=== PATIENT | male | born 1960 | race Caucasian/White ===

== ENCOUNTER 2019-02-18 04:57 | Inpatient (IN) ==
--- NOTE | 2019-02-18 06:40 | PROVIDER DOCUMENTATION ---
HPI-Respiratory General - General Chief Complaint: Shortness of Breath Stated Complaint: SOB Time Seen by Provider: 02/18/19 05:30 Source: patient Allergies/Adverse Reactions: Patient Allergies Allergy/AdvReac Type Severity Reaction Status Date / Time No Known Allergies Allergy Verified 09/27/12 09:49 Home Medications: Home Medication List Medication Instructions Recorded Confirmed Last Taken Type Albuterol Sulfate [Albuterol 8.5 gm INHALATION Q4-6H PRN PRN #1 02/18/19 Unknown Rx Sulfate Hfa] [email or web address] Albuterol Sulfate [Proair Hfa] 8.5 gm INHALATION DAILY 02/18/19 02/18/19 Unknown History LISINOpril [Prinivil] 20 mg PO DAILY 02/18/19 02/18/19 Unknown History Levofloxacin [Levaquin] 750 mg PO DAILY #7 tab 02/18/19 Unknown Rx Valacyclovir HCl [Valacyclovir] 1,000 mg PO TID 02/18/19 02/18/19 Unknown History - History of Present Illness-Resp Nature of Presenting Problem: PT REALLY WANTED TO GO HOME AND PLANT SOME MILLET AFTER THE RAIN BUT WAS UNABLE TO GET OUT OF THE LOBBY. TOO WEAK TO WALK TO THE CAR. VERY SOB. NO C/O CHEST PAIN. AGAIN, COUGHING UP THICK YELLOW -GREEN SPUTUM X 4 DAYS, HOT AND COLD. STINT PLACED IN 2011. UNABLE TO STOP SMOKING AND LOST TO CARDIAC FOLLOW UP OVER SMOKING ISSUE. Review of Systems - Adult - REVIEW OF SYSTEMS - ADULT Constitutional: reports: no symptoms reported, chills, fever Eyes: reports: no symptoms reported Ears, Nose, Mouth & Throat: reports: no symptoms reported Cardiovascular: reports: no symptoms reported Respiratory: reports: cough, shortness of breath Gastrointestinal: reports: no symptoms reported Genitourinary: reports: no symptoms reported Musculoskeletal: reports: no symptoms reported Integumentary: reports: no symptoms reported Neurological: reports: no symptoms reported Psychiatric: reports: no symptoms reported Endocrine: reports: no symptoms reported Hematologic/Lymphatic: reports: no symptoms reported Allergic/Immunologic: reports: no symptoms reported All Other Systems: Reviewed and Negative Past History - Adult - PAST MEDICAL HISTORY-ADULT Review of Records: reports: Nursing Assessment Review, Medications Reviewed, Social history reviewed & non-contributory. Major Childhood Illnesses: reports: denies history Cardiovascular: reports: CO, other (SINGLE CARDIAC STINT 2011) Respiratory: reports: denies history Gastrointestinal: reports: denies history Obstetrical/Gynecological: reports: denies history Genitourinary: reports: denies history Musculoskeletal: reports: denies history Neurological: reports: denies history Endocrine/Immune: reports: denies history Other Conditions: reports: denies history Physical Exam-General - PHYSICAL EXAM-ADULT Initial Vital Signs Reviewed: Yes - CONSTITUTIONAL General Appearance: alert, mild distress - EYES Eyes: PERRL/EOMI, pink conjunctivae - HEAD, EARS, NOSE, MOUTH & THROAT HENMT: normocephalic/atraumatic, moist mucous membranes - NECK Neck: supple - RESPIRATORY Respiratory: chest non-tender, lungs clear, normal breath sounds, other (MILD INCREASED RESPIRATIORY EFFORT) - CARDIOVASCULAR Cardiovascular: regular rate, rhythm, no edema, no JVD, no murmur - GASTROINTESTINAL (ABDOMEN) Abdominal Exam: non tender, soft - HEART Score HEART Score: History: Slightly Suspicious HEART Score: ECG: Non-Specific Repolarization Disturbance/LBBB/PM HEART Score: Age: 45-65 Years HEART Score: Risk Factors for Atherosclerotic Disease: 1 or 2 Risk Factors HEART Score: Troponin: < or = Normal Limit Total HEART Score:: 3 Progress - PLAN OF CARE/RESULTS Progress/Plan/Lab Results: Vital Signs - 8 hr 02/18/19 05:08 Temperature 98.8 F Pulse Rate 98 H Respiratory Rate 20 Blood Pressure 146/71 O2 Sat by Pulse Oximetry 94 L Orders Category Date Time Status TROPONIN T Stat Lab 02/18/19 06:41 Uncollected EKG [EKG] Stat Ther 02/18/19 06:41 Ordered - XRAY 1 XRAY Study: Chest Impression: Normal (EXPANDED, NO INFILTRATES OR MASSES.) - CONSULTS/PCP/HOSPITALIST Notification #1 *Consult/PCP/Hospitalist*: DR GARCIA Time Discussed: 06:36 Consult Disposition: Admit Departure - Departure Date of Disposition Decision: 02/18/19 Time of Disposition Decision: 06:44 DIAGNOSIS: SOB (shortness of breath), Acute bronchitis, Coronary artery disease (CAD) excluded Disposition: ADMITTED INPATIENT 09 Certified Medical Emergency: Emergent Condition: Stable Referrals and Follow-Ups: Janie Lockwood CRNP [Primary Care Provider] - - Critical Care Note This patient required my direct & personal management of CC.: No Attestation - Physician/ HIREN Attestation Patient care was provided by Advanced Practice Provider:: No The physician spent face to face time with patient:: Yes Advanced Practice Provider documentation review:: Supervising physician onsite and consulted in the evaluation and care of this patient. The physician did have a face to face encounter with the patient.
[2019-02-18] MEDS ORDERED: DUONEB (A & A) INH ONE (08:21)
[2019-02-18] MEDS ORDERED: PRILOSEC PO ONE (08:44)
[2019-02-18] MEDS ORDERED: ZOFRAN IV PRN (08:45)
--- NOTE | 2019-02-18 09:27 | HISTORY AND PHYSICAL ---
NURSE PRACTITIONER PER DIEM: ANDREW Galaviz. CHIEF COMPLAINT: Shortness of breath and cough. HISTORY OF PRESENT ILLNESS: Mr. Anand is a 58-year-old male, who states that on Wednesday of last week he went to see his hvac lead and was told that he had shingles. She also wanted to order an MRI, colonoscopy and a stress test on the patient. The hvac lead stated that he had elevated liver enzymes, and she saw some elevations on his heart numbers on his labs. This past Wednesday, the patient developed a cough and steadily became more and more tired throughout the week. The patient states at 11 p.m. last night, he woke up and he was unable to breathe, and he has never felt this way before. The patient did call the ambulance. EMS on arrival stated that his saturations were in the low 90s and placed him on oxygen at that time and brought him to the ER. The patient states he has been having yellow mucus, a large amount that he is coughing up since Wednesday. The patient states he has a history of hypertension, hyperlipidemia, and did have some coronary stents placed in 2011 at [facility]. However, he only takes medication for his hypertension. He does not take anything for his hyperlipidemia. The patient states that he threw those pills away. The patient denies any chest pain at this time, however states it is hard for him to take a deep breath. Patient is on room air at this time and O2 saturations at 94%. The patient denies any fever or chills, difficulty urinating. 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 The patient has been taking his Valacyclovir and lisinopril and his ProAir inhaler since he saw his hvac lead last week. No other pertinent findings noted. PAST MEDICAL HISTORY: 1. Hypertension, 2. Hyperlipidemia, 3. Coronary artery disease, 4. Arthritis. PAST SURGICAL HISTORY: 1. Three back operations on L3 through L5, 2. Coronary stents placed in 2011 at [facility], 3. Arthroscopic left knee surgery, 4. Colonoscopy 3 years ago. FAMILY HISTORY: Mother of a heart attack, another sister of a heart attack and a sister of breast cancer. Father is still living and states that he is in pretty good health, but does have a pacemaker. He is 97 years old. SOCIAL HISTORY: Patient lives in [place]; he is a dairy technologist. States that he does drink beer pretty heavily, not every day, but pretty often, at least every other day. States that he smokes 1/2 to 1 pack per day cigarettes since he was 16 years old. Denies any illicit drug use. ALLERGIES: No known drug allergies. MEDICATIONS: 1. ProAir inhaler 2 puffs p.r.n., 2. Valacyclovir 1000 mg p.o. t.i.d., 3. Lisinopril 20 mg p.o. daily, 4. Aspirin 81 mg p.o. at bedtime. LABS AND DIAGNOSTICS: White blood cell count 6.13, hemoglobin 14.7, hematocrit 41.6, platelet count 83. Sodium 138, potassium 3.6, chloride 105, carbon dioxide 22. BUN 14, creatinine 0.7. Estimated GFR is greater than 60, glucose is 121, calcium is 8.9. Creatine kinase is 639. Troponin is less than 0.01. Chest x-ray shows bronchopneumonia plus pulmonary edema. REVIEW OF SYSTEMS: A 12 point review of systems was performed and all are negative, except what is stated above in the HPI. PHYSICAL EXAMINATION: VITAL SIGNS: Temperature 98.8 degrees, pulse rate 98, respiratory rate 20, blood pressure 146/71, O2 saturation 94% on room air. Weight 230 pounds. Height 5 feet 10 inches. GENERAL: This is a 58-year-old male lying in the ER stretcher. He is well nourished, well developed, and in no acute distress at present time. HEENT: Head is atraumatic, normocephalic. Pupils are equal, round, reactive to light. Mucous membranes are moist. NECK: Supple. No lymphadenopathy. Trachea is midline. No JVD. CV: Regular rate and rhythm. No murmurs, gallops, or rubs appreciated. RESPIRATORY: Lung sounds anteriorly wheezes noted bilaterally, posteriorly rhonchi and rales noted to the right upper lung field and middle lung field. Respirations are nonlabored with no accessory muscle usage. Cough is present. GI: Abdomen is soft, nontender, and nondistended with bowel sounds present x4. NEUROLOGIC: The patient is awake, alert, oriented x4. Cranial nerves intact. Follows commands. MUSCULOSKELETAL: Full distal strength noted. No abnormalities, no deformities. EXTREMITIES: No clubbing, no cyanosis. DP and PT pulses are present and palpable. There is mild trace edema noted to bilateral lower extremities. SKIN: Warm, dry, and intact. No rashes or bruises. Turgor is good. No diaphoresis. ASSESSMENT: 1. Bronchopneumonia. 2. Chronic obstructive pulmonary disease with exacerbation. 3. Hypertension. 4. Dyspnea and cough. 5. History of elevated liver enzymes. 6. Hyperlipidemia. 7. Coronary artery disease. 8. Tobacco Dependence. 9. Excessive alcohol dependence. 10. Arthritis. PLAN: We will admit this patient to the medical floor. We will replete labs this morning and liver enzymes. We will check a proBNP on the patient. We will check a Lipid panel. We will check Immunoglobulin, HIV and Hepatitis panel. Do an EKG, ultrasound of the abdomen, and Echo. Repeat chest x-ray and labs in the a.m. Start this patient on azithromycin and ceftriaxone. Start this patient on albuterol and Atrovent breathing treatments q. [address] this patient on quality assurance monitor final and monitor this patient closely. Patient seen and examined by me face to face, all the laboratory, vitals signs and images were reviewed, patient presented to the Emergency Department with shortness of breath, and generalized weakness, he has a history of alcohol abuse and tobacco abuse, elevated liver enzymes, he has bilateral wheezes, crackles, I will order some Lasix, breathing treatment, oxygen, abdominal US, Echocardiogram, hepatitis profile, antibiotics for possible pneumonia, I agree with the BELLY DANCER's assessment and plan, Patrick Doran MD. Dictated by ANDREW Toth for Patrick Lara MD cc: MD NITHYA Zuleta
[2019-02-18] MEDS: DUONEB (A & A) INH SCH ×3 (10:14→21:46)
[2019-02-18] MEDS ORDERED: LASIX IV ONE ×2 (10:21→17:00)
--- NOTE | 2019-02-18 11:39 | Diag Imaging Result Doc PS360 ---
EXAM: US ABDOMEN-COMPLETE 02/18/2019 HISTORY: elevated liver enzymes TECHNIQUE: Abdominal ultrasound COMMENT: The pancreatic head is normal in appearance. The liver is hyperechoic and heterogeneous in appearance. There is no evidence of biliary dilatation the common bile duct measuring less than 6 mm. There is antegrade flow in the portal vein. The gallbladder is not distended. There are no apparent stones and there is no sonographic Bailey sign. The spleen is enlarged measuring over 15 cm. The kidneys are without evidence of hydronephrosis or mass. The visualized portions of the aorta and inferior vena cava are within normal limits. IMPRESSION: Splenomegaly. Probable cirrhosis. Electronically signed by Stewart Pritchard 02/18/2019 11:37 AM
[2019-02-18 12:21] LABS: BASO# 0.01 X1000 (0.0-0.2); BASO% 0.3 % (0.0-0.8); EOS# 0.01 X1000 (0.0-0.7); EOS% 0.3 % (0.0-10.0); HEMATOCRIT 40.9 % (42.0-52.0); LYMPH# 0.48 X1000 (1.2-3.4); MCH 38.7 PG (27-31); MCHC 36.7 g/dL (33-37); MCV 105.4 FL (81-99); MONO# 0.04 X1000 (0.11-0.59); MONO% 1.2 % (1.7-9.3); NEUT% 84.2 % (42.2-75.2); PLT 78 X1000 (130-400); RBC 3.88 XMIL (4.7-6.1); RDW 13.5 % (11.5-14.5); WBC 3.44 X1000 (4.8-10.8)
[2019-02-18 12:25] LABS: AGAP 14; ALB/GLOB RATIO 0.8; ALBUMIN 3.4 g/dL (3.5-5.0); ALKALINE PHOSPHATASE 172 U/L (32-122); BUN 14 mg/dL (8-22); CALCIUM 9.2 mg/dL (8.8-10.2); CHLORIDE 100 mmol/L (98-107); COSMO 280; CREATININE 0.7 mg/dL (0.7-1.2); ESTIMATED GFR > 60; GLUCOSE 274 mg/dL (70-104); GOT 101 U/L (10-34); GPT 86 U/L (10-44); MAGNESIUM 1.8 mg/dL (1.5-2.7); PHOSPHORUS 2.6 mg/dL (2.7-4.5); POTASSIUM 3.9 mmol/L (3.5-5.1); SODIUM 135 mmol/L (136-145); TCO2 21 mmol/L (25-35); TOTAL BILIRUBIN 1.15 mg/dL (0.20-1.00); TOTAL PROTEIN 7.9 g/dL (6.3-8.3)
[2019-02-18 12:26] LABS: CK PROFILE 585 U/L (24-204)
[2019-02-18 12:42] LABS: CK INDEX 0.8 (0.0-2.5); CK-MB 4.58 ng/mL (0.0-5.0)
[2019-02-18] MEDS: PRINIVIL PO SCH (17:12)
[2019-02-18] MEDS: ROCEPHIN 1 GM in NS 50 ML IV SCH (17:12)
[2019-02-18] MEDS: LOVENOX SUBQ SCH (17:15)
[2019-02-18] MEDS: ZITHROMAX 500 MG/NS 500 MG/250 ML IVPB IV SCH (17:16)
--- NOTE | 2019-02-18 18:14 | ECHO REPORT ---
ORDER DATE: 02/18/2019 REQUESTING PHYSICIANS: Hospital service. REASON FOR STUDY: Dyspnea, previous stent, smoker. M-MODE MEASUREMENTS: Left ventricle end diastole: 3.7. Left ventricle end systole: 2.0. Posterior wall: 0.9. Interventricular septum: 0.9. Left atrium: 2.6. Aortic diameter: 3.4. SUMMARY OF 2-DIMENSIONAL IMAGIN. Left ventricular function is excellent. Ejection fraction is estimated at 70% to 75%. There is no wall motion abnormality noted. 2. The right ventricle is noted. 3. There is no pericardial effusion. 4. The aortic valve is normal. Color flow mapping unremarkable. 5. The mitral valve is normal. Color flow mapping unremarkable. 6. Pulsed wave Doppler of mitral inflow showed reversal of the E/A ratio. The ratio is 0.7. 7. Tissue Doppler of septal and lateral mitral annulus averages 9 cm. 8. There is no diastolic dysfunction. 9. The inferior vena cava is not dilated. 10.Pulmonary pressure is estimated at 24 mmHg. 11.The pulmonic valve is normal. Color flow mapping unremarkable. 12.There is no pericardial effusion, no mass, no thrombus. 13.The cardiac chambers are not dilated. This echocardiographic study appears to be well within normal range. cc: Be Prather MD
[2019-02-18] MEDS: ATIVAN IV PRN (21:23)
[2019-02-18] MEDS: TYLENOL PO PRN (21:26)
[2019-02-19] MEDS: DUONEB (A & A) INH SCH ×6 (03:52→23:19)
[2019-02-19] MEDS: PRILOSEC PO SCH (06:37)
--- NOTE | 2019-02-19 07:01 | Diag Imaging Result Doc PS360 ---
EXAM: CHEST-PORTABLE 02/19/2019 HISTORY: Pneumonia TECHNIQUE: AP portable at 0616 COMMENT: There continues to be ill-defined opacity just above the minor fissure in the right upper lobe. Considering differences in technique this has not changed appreciably since 02/18/2019. The coarse opacities seen previously in the right lower lobe are somewhat improved. IMPRESSION: Improved pulmonary edema versus pneumonia in the right lower lobe. Otherwise stable since 02/18/2019. Electronically signed by Stewart Pritchard 02/19/2019 6:59 AM
[2019-02-19 07:48] LABS: RBC 4.28 XMIL (4.7-6.1); WBC 11.69 X1000 (4.8-10.8)
[2019-02-19 07:49] LABS: BASO# 0.02 X1000 (0.0-0.2); BASO% 0.2 % (0.0-0.8); EOS# 0.06 X1000 (0.0-0.7); EOS% 0.5 % (0.0-10.0); HEMOGLOBIN 15.2 g/dL (14.0-18.0); IMM GRAN# 0.03 X1000 (0.0-0.04); IMM GRAN% 0.3 % (0.0-0.5); LYMPH# 1.97 X1000 (1.2-3.4); LYMPH% 16.9 % (20.5-51.1); MCH 35.5 PG (27-31); MCHC 34.5 g/dL (33-37); MCV 102.8 FL (81-99); MONO# 1.02 X1000 (0.11-0.59); MONO% 8.7 % (1.7-9.3); MPV 9.7 FL (7.4-10.4); NEUT# 8.59 X1000 (1.4-6.5); NEUT% 73.4 % (42.2-75.2); PLT 107 X1000 (130-400); RDW 13.6 % (11.5-14.5)
[2019-02-19 07:56] LABS: IRON SATURATION 47 %; TIBC 248 ug/dL; TOTAL IRON 117 ug/dL (53-167); UNBOUND IRON 131 ug/dL (112-346)
[2019-02-19 07:59] LABS: AGAP 12; BUN 22 mg/dL (8-22); CALCIUM 8.6 mg/dL (8.8-10.2); CHLORIDE 106 mmol/L (98-107); COSMO 285; CREATININE 0.8 mg/dL (0.7-1.2); ESTIMATED GFR > 60; GLUCOSE 133 mg/dL (70-104); SODIUM 140 mmol/L (136-145); TCO2 22 mmol/L (25-35)
[2019-02-19 08:00] LABS: ALB/GLOB RATIO 0.8; ALBUMIN 3.2 g/dL (3.5-5.0); ALKALINE PHOSPHATASE 159 U/L (32-122); GOT 80 U/L (10-34); GPT 77 U/L (10-44); TOTAL BILIRUBIN 0.81 mg/dL (0.20-1.00); TOTAL PROTEIN 7.4 g/dL (6.3-8.3)
[2019-02-19 08:17] LABS: FERRITIN 1017 ng/mL (30-400)
[2019-02-19] MEDS: ROCEPHIN 1 GM in NS 50 ML IV SCH (08:40)
[2019-02-19] MEDS: PRINIVIL PO SCH (08:40)
[2019-02-19] MEDS: LOVENOX SUBQ SCH (08:40)
[2019-02-19 08:52] LABS: HEMOGLOBIN A1C 4.9 % (4.8-6.0)
[2019-02-19] MEDS ORDERED: DUONEB (A & A) INH PRN (09:04)
[2019-02-19] MEDS ORDERED: LASIX IV ONE (09:12)
[2019-02-19] MEDS: SOLU-MEDROL IV SCH ×2 (10:11→17:28)
[2019-02-19] MEDS: FOLIC ACID PO SCH (10:16)
[2019-02-19] MEDS: ZITHROMAX 500 MG/NS 500 MG/250 ML IVPB IV SCH (12:30)
--- NOTE | 2019-02-19 12:30 | PROGRESS NOTE ---
DATE: 02/19/2019 SUBJECTIVE: This patient is complaining of shortness of breath and cough, with some chest discomfort. We had a large conversation about his lab results, including his LFTs, platelet count. Also we discussed about the images. His abdominal ultrasound showed splenomegaly and possible liver cirrhosis. Chest x-ray today looks better, but he is still having some crackles m and he is wheezing. OBJECTIVE: Vital Signs: Temperature 98.5 degrees, pulse 91, respiratory rate 22, blood pressure 121/65, oxygen saturation 93 on 3 L of nasal cannula. HEENT: Head normocephalic, no trauma. PERRLA. Neck: Supple. No JVD. No masses. Central trachea. Chest: Decreased breath sounds globally with prolonged expiratory phase and inspiratory and expiratory wheezing bilaterally, crackles bilaterally mostly at the bases. Abdomen: Soft, protuberant, slightly distended. Positive bowel sounds. Extremities: No edema, no clubbing, no cyanosis. Neurological: The patient is alert and oriented x3. No focal deficits. LABORATORY: WBC 11.6, hemoglobin 15.2, hematocrit 44.0, platelets 107,000. Sodium 140, potassium chloride 106, bicarbonate 22, BUN 22, creatinine 0.8, glucose 133, calcium 8.6, AST 80, ALT 77, alkaline phosphatase 159, albumin 3.2. Folate 9.1, B12 of 1376. ASSESSMENT AND PLAN: 1. Right lower lobe bronchopneumonia with likely chronic obstructive pulmonary disease exacerbation. This patient has been placed on breathing treatment, antibiotics. I will add steroids since he is having more shortness of breath. Continue with antibiotics as well and oxygen supplementation. 2. Possible liver cirrhosis. This patient has a history of alcohol abuse. As per the patient he is willing to stop completely. He will need to follow up as an outpatient with Gastroenterology Department. He will receive a dose of Lasix today due to some fluid overload, mostly in his lungs. 3. Thrombocytopenia, likely due to liver dysfunction. 4. Elevated liver function tests. As per #2. 5. Hypertension, stable. Continue with same management. 6. Tobacco abuse. This patient has been highly advised against tobacco use. I will continue with daily cessation education. As per the patient, he is willing to stop smoking completely. 7. Excessive alcohol dependence. Aware. He has been advised against alcohol use. As per the patient, he is willing to stop. 8. Arthritis. We will monitor. It looks like he has been using Goody's Powder 2 to 3 times per day. I recommended to stop it. Echocardiogram showed not show any abnormality. We will continue to monitor. TSH is normal, as well as the hemoglobin A1c. Continue breathing treatment, steroids, oxygen, antibiotics, and Lasix. cc: Patrick Lara MD
[2019-02-19 19:23] LABS: HIV ANTIBODY SCREEN SEE COMMENTS
[2019-02-19] MEDS: ATIVAN IV PRN (21:23)
[2019-02-19] MEDS: TYLENOL PO PRN (21:30)
[2019-02-20] MEDS: SOLU-MEDROL IV SCH ×4 (01:36→20:38)
[2019-02-20] MEDS: DUONEB (A & A) INH SCH ×6 (03:28→23:57)
[2019-02-20] MEDS: PRILOSEC PO SCH (06:27)
[2019-02-20 07:48] LABS: BASO# 0.01 X1000 (0.0-0.2); BASO% 0.1 % (0.0-0.8); EOS# 0.01 X1000 (0.0-0.7); EOS% 0.1 % (0.0-10.0); HEMATOCRIT 39.8 % (42.0-52.0); HEMOGLOBIN 14.5 g/dL (14.0-18.0); IMM GRAN# 0.04 X1000 (0.0-0.04); IMM GRAN% 0.4 % (0.0-0.5); LYMPH# 1.11 X1000 (1.2-3.4); LYMPH% 10.8 % (20.5-51.1); MCH 38.2 PG (27-31); MCHC 36.4 g/dL (33-37); MCV 104.7 FL (81-99); MONO# 0.28 X1000 (0.11-0.59); MONO% 2.7 % (1.7-9.3); MPV 9.5 FL (7.4-10.4); NEUT# 8.83 X1000 (1.4-6.5); NEUT% 85.9 % (42.2-75.2); PLT 98 X1000 (130-400); RDW 13.6 % (11.5-14.5); WBC 10.28 X1000 (4.8-10.8)
[2019-02-20 08:01] LABS: AGAP 12; ALB/GLOB RATIO 0.8; ALBUMIN 3.1 g/dL (3.5-5.0); ALKALINE PHOSPHATASE 157 U/L (32-122); BUN 20 mg/dL (8-22); CALCIUM 8.3 mg/dL (8.8-10.2); CHLORIDE 106 mmol/L (98-107); COSMO 284; CREATININE 0.6 mg/dL (0.7-1.2); ESTIMATED GFR > 60; GLUCOSE 166 mg/dL (70-104); GOT 69 U/L (10-34); GPT 78 U/L (10-44); POTASSIUM 4.3 mmol/L (3.5-5.1); SODIUM 139 mmol/L (136-145); TCO2 21 mmol/L (25-35); TOTAL BILIRUBIN 0.76 mg/dL (0.20-1.00); TOTAL PROTEIN 7.2 g/dL (6.3-8.3)
[2019-02-20] MEDS: PRINIVIL PO SCH (08:20)
[2019-02-20] MEDS: ROCEPHIN 1 GM in NS 50 ML IV SCH (08:20)
[2019-02-20] MEDS: FOLIC ACID PO SCH (08:20)
[2019-02-20] MEDS: LOVENOX SUBQ SCH (08:21)
[2019-02-20 08:23] LABS: BANDS 6 % (0-1); LYMPHS 14 % (21-51); SEGS 80 % (42-75)
[2019-02-20 10:48] LABS: HEPATITIS PROFILE ACUTE SEE COMMENTS
[2019-02-20] MEDS: ATIVAN IV PRN ×3 (11:53→20:38)
[2019-02-20] MEDS: TYLENOL PO PRN ×2 (11:54→20:39)
[2019-02-20] MEDS: ZITHROMAX 500 MG/NS 500 MG/250 ML IVPB IV SCH (11:55)
[2019-02-20] MEDS ORDERED: LASIX IV ONE (13:08)
--- NOTE | 2019-02-20 13:35 | PROGRESS NOTE ---
DATE: 02/20/2019 SUBJECTIVE: This patient is complaining of shortness of breath and cough. He does have some chest discomfort. Laboratory showed hepatitis C antibody, which is reactive. I will ask for hepatitis C viral load and genotypes. I discussed briefly the case with Dr. Zaragoza about this patient. He will wait for those results to decide treatment. OBJECTIVE: Vital Signs: Temperature 97.7 degrees, pulse 86, respiratory rate 20, blood pressure 154/75. Oxygen saturation 97% on 4 L of nasal cannula. HEENT: Head normocephalic. No trauma. PERRLA. Neck: Supple. No JVD. No masses. Central trachea. Chest: Decreased breath sounds globally with prolonged expiratory phase and expiratory wheezing, bilaterally, some crackles at the bases. Abdomen: Soft, protuberant and slightly distended. Positive bowel sounds. Extremities: No edema. No clubbing. No cyanosis. Neurological: The patient is alert and oriented x3. No focal deficits. LABORATORY: WBC 10.2, hemoglobin 14.5, hematocrit 39.8, platelets 98,000. Sodium 139, potassium 4.3, chloride 106, bicarbonate 21, BUN 20, creatinine 0.6. Glucose 166, calcium 8.3, total bilirubin 0.7, AST 69, ALT 78, alkaline phosphatase 157, albumin 3.1. ASSESSMENT AND PLAN: 1. Right lower lobe pneumonia with chronic obstructive pulmonary disease exacerbation. Continue breathing treatment antibiotics, steroids. He is still complaining of shortness of breath. Continue with antibiotics and oxygen supplementation. 2. Possible liver cirrhosis. This patient has a history of alcohol abuse. As per the patient, he drinks 4/7 days per week. He is willing to stop completely. I will continue with daily cessation education, gastroenterology Department will follow this patient up as an outpatient. 3. Thrombocytopenia likely due to liver dysfunction. 4. Hepatitis C, recently diagnosed, we have a positive hepatitis C antibody, I have requested a viral load and genotype. 5. Elevated LFTs likely secondary to liver cirrhosis and hepatitis. 6. Hepatitis, liver cirrhosis, hepatitis, alcohol abuse. 7. Hypertension, stable. 8. Tobacco abuse. This patient has been highly advised against tobacco use. I will continue with daily cessation education. 9. Excessive alcohol dependence. As per the patient, he drinks 4/7 days a week. As per the patient, he is willing to stop. I will continue with daily cessation education. 10. Arthritis. We will monitor. It looks like he has been using Goody's powder 2 to 3 times a day. I recommended to stop it. cc: Patrick Lara MD
[2019-02-21] MEDS: SOLU-MEDROL IV SCH ×4 (03:04→21:10)
[2019-02-21] MEDS: DUONEB (A & A) INH SCH ×6 (03:16→23:27)
[2019-02-21] MEDS: NICODERM PATCH TD SCH (08:46)
[2019-02-21] MEDS: FOLIC ACID PO SCH (08:47)
[2019-02-21] MEDS: PRINIVIL PO SCH (08:47)
[2019-02-21] MEDS: ROCEPHIN 1 GM in NS 50 ML IV SCH (08:47)
[2019-02-21] MEDS: LOVENOX SUBQ SCH (08:47)
[2019-02-21] MEDS: ATIVAN IV PRN (09:37)
[2019-02-21 09:51] LABS: BASO# 0.01 X1000 (0.0-0.2); BASO% 0.1 % (0.0-0.8); EOS# 0.01 X1000 (0.0-0.7); EOS% 0.1 % (0.0-10.0); HEMATOCRIT 41.2 % (42.0-52.0); HEMOGLOBIN 14.6 g/dL (14.0-18.0); IMM GRAN# 0.09 X1000 (0.0-0.04); IMM GRAN% 0.8 % (0.0-0.5); LYMPH# 1.02 X1000 (1.2-3.4); LYMPH% 9.6 % (20.5-51.1); MCH 37.2 PG (27-31); MCHC 35.4 g/dL (33-37); MCV 104.8 FL (81-99); MONO# 0.38 X1000 (0.11-0.59); MONO% 3.6 % (1.7-9.3); MPV 9.5 FL (7.4-10.4); NEUT# 9.15 X1000 (1.4-6.5); NEUT% 85.8 % (42.2-75.2); PLT 92 X1000 (130-400); RBC 3.93 XMIL (4.7-6.1); RDW 13.7 % (11.5-14.5); WBC 10.66 X1000 (4.8-10.8)
[2019-02-21 10:25] LABS: AGAP 12; ALB/GLOB RATIO 0.7; ALKALINE PHOSPHATASE 142 U/L (32-122); BUN 19 mg/dL (8-22); CALCIUM 8.4 mg/dL (8.8-10.2); CHLORIDE 104 mmol/L (98-107); COSMO 283; CREATININE 0.8 mg/dL (0.7-1.2); ESTIMATED GFR > 60; GLUCOSE 196 mg/dL (70-104); GOT 62 U/L (10-34); GPT 80 U/L (10-44); POTASSIUM 4.1 mmol/L (3.5-5.1); SODIUM 138 mmol/L (136-145); TCO2 22 mmol/L (25-35); TOTAL BILIRUBIN 0.66 mg/dL (0.20-1.00); TOTAL PROTEIN 7.4 g/dL (6.3-8.3)
[2019-02-21 10:50] LABS: HCV BY PCR SEE COMMENTS
[2019-02-21 10:57] LABS: BANDS 2 % (0-1); LYMPHS 4 % (21-51); SEGS 94 % (42-75)
[2019-02-21] MEDS: ZITHROMAX 500 MG/NS 500 MG/250 ML IVPB IV SCH (12:05)
[2019-02-21] MEDS: LIBRIUM PO SCH ×2 (14:07→21:10)
[2019-02-21] MEDS ORDERED: LASIX IV ONE (14:36)
--- NOTE | 2019-02-21 15:12 | PROGRESS NOTE ---
DATE: 02/18/2019 SUBJECTIVE: This patient is still complaining of shortness of breath, but I believe he is getting better. He is on 2 L of oxygen. Laboratory showed hepatitis C and I asked for hepatitis C viral load and genotypes. I will continue with the same management. I do believe he is getting better. OBJECTIVE: Vital Signs: Temperature 97.6 degrees, pulse 86, respiratory rate 15, blood pressure 136/69, oxygen saturation 97% on 2 L of nasal cannula. HEENT: Head normocephalic, no trauma. PERRLA. Neck: Supple. No JVD. No masses. Central trachea. Chest: Decreased breath sounds globally with prolonged expiratory phase and expiratory wheezing. Some crackles at the bases. Abdomen: Soft, protuberant, slightly distended. Positive bowel sounds. Extremities: No edema, no clubbing, no cyanosis. Neurological examination: The patient is alert. He is oriented x3. No focal deficits. LABORATORY: WBC 10.6, hemoglobin 14.6, hematocrit 41.2, platelets 92. Sodium 138, potassium 4.1, chloride 104, bicarbonate 22. BUN 19, creatinine 0.8, glucose 196, calcium 8.4. AST 62, ALT 80, alkaline phosphatase 142, albumin 3. ASSESSMENT AND PLAN: 1. Right lower lobe pneumonia with chronic obstructive pulmonary disease exacerbation. Continue breathing treatment, antibiotics, steroids. He is still complaining of some shortness of breath, but he is getting better. We will continue with oxygen supplementation as well. 2. Possible alcohol withdrawal symptoms. As per the patient, he was having some hallucinations in the morning. He was looking at some box. He is really anxious today. I will start this patient on Librium, and I will taper this down slowly. 3. Thrombocytopenia likely due to liver dysfunction. 4. Hepatitis C, recently diagnosed. We have a positive antibody for hepatitis C. I have requested viral load and genotype, and follow up with Gastroenterology as an outpatient. 5. Elevated liver function tests, likely secondary to liver cirrhosis and hepatitis. 6. Possible liver cirrhosis. This patient has a history of alcohol abuse. As per the patient, he drinks 4/7 days a week at least, and he is willing to stop completely. I will continue with daily cessation education. Gastroenterology Department will monitor this patient as an outpatient. 7. Hypertension, stable. 8. Tobacco abuse. This patient has been highly advised against tobacco use. I will continue with daily cessation education. 9. Alcohol abuse. Aware. I will continue with daily cessation education as well. 10. Arthritis. We will monitor. As per the patient, he has been using Goody's powder 2 to 3 times a day, and I recommended to stop it. cc: Patrick Lara MD
[2019-02-22] MEDS: SOLU-MEDROL IV SCH ×3 (02:08→18:19)
[2019-02-22] MEDS: LIBRIUM PO SCH ×4 (02:08→21:36)
[2019-02-22] MEDS: DUONEB (A & A) INH SCH ×5 (03:43→19:49)
[2019-02-22] MEDS: PRILOSEC PO SCH (06:11)
[2019-02-22 07:26] LABS: BASO# 0.01 X1000 (0.0-0.2); BASO% 0.1 % (0.0-0.8); HEMATOCRIT 43.2 % (42.0-52.0); HEMOGLOBIN 14.9 g/dL (14.0-18.0); IMM GRAN# 0.13 X1000 (0.0-0.04); IMM GRAN% 1.4 % (0.0-0.5); LYMPH# 1.06 X1000 (1.2-3.4); LYMPH% 11.1 % (20.5-51.1); MCH 35.6 PG (27-31); MCHC 34.5 g/dL (33-37); MCV 103.1 FL (81-99); MONO# 0.37 X1000 (0.11-0.59); MONO% 3.9 % (1.7-9.3); NEUT# 7.98 X1000 (1.4-6.5); NEUT% 83.5 % (42.2-75.2); PLT 94 X1000 (130-400); RBC 4.19 XMIL (4.7-6.1); RDW 13.6 % (11.5-14.5); WBC 9.55 X1000 (4.8-10.8)
[2019-02-22 07:51] LABS: AGAP 9; ALB/GLOB RATIO 0.7; ALBUMIN 3.1 g/dL (3.5-5.0); ALKALINE PHOSPHATASE 154 U/L (32-122); BUN 20 mg/dL (8-22); CALCIUM 8.4 mg/dL (8.8-10.2); CHLORIDE 102 mmol/L (98-107); COSMO 278; CREATININE 0.7 mg/dL (0.7-1.2); ESTIMATED GFR > 60; GLUCOSE 162 mg/dL (70-104); GOT 74 U/L (10-34); GPT 96 U/L (10-44); POTASSIUM 3.9 mmol/L (3.5-5.1); SODIUM 136 mmol/L (136-145); TCO2 25 mmol/L (25-35); TOTAL BILIRUBIN 0.71 mg/dL (0.20-1.00); TOTAL PROTEIN 7.6 g/dL (6.3-8.3)
[2019-02-22] MEDS: FOLIC ACID PO SCH (09:18)
[2019-02-22] MEDS: LOVENOX SUBQ SCH (09:18)
[2019-02-22] MEDS: NICODERM PATCH TD SCH (09:18)
[2019-02-22] MEDS: PRINIVIL PO SCH (09:18)
[2019-02-22] MEDS: ROCEPHIN 1 GM in NS 50 ML IV SCH (09:18)
[2019-02-22] MEDS: ZITHROMAX 500 MG/NS 500 MG/250 ML IVPB IV SCH (11:21)
[2019-02-22] MEDS ORDERED: LASIX IV ONE (11:30)
--- NOTE | 2019-02-22 13:42 | PROGRESS NOTE ---
DATE: 02/22/2019 SUBJECTIVE: This patient is still complaining of shortness of breath, but he is feeling much better. I have decreased the frequency of his Librium. Also, I have decreased the frequency of his steroids. I will give him an extra dose of Lasix. He sounds better, but still wheezing and short of breath. Physical Therapy has been consulted. OBJECTIVE: Vital Signs: Temperature 97.6 degrees, pulse 93, respiratory rate 18, blood pressure 155/84, and oxygen saturation 92 on 3 L of nasal cannula. HEENT: Head normocephalic. No trauma. PERRLA. Neck: Supple. No JVD. No masses. Central trachea. Chest: Decreased breath sounds globally with prolonged expiratory phase and expiratory wheezing. There are some crackles at the bases. Abdomen: Soft. Protuberant and slightly distended. Positive bowel sounds. Extremities: No edema. No clubbing. No cyanosis. Neurological: The patient is alert. He is oriented x3. No focal deficits. LABORATORY: WBC 9.5, hemoglobin 14.9, hematocrit 42.9, and platelets 94,000. Sodium 136, potassium 3.9, chloride 102, bicarbonate 25, BUN 20, creatinine 0.7, glucose 162, calcium 8.4, and albumin 3.1. ASSESSMENT AND PLAN: 1. Right lower lobe pneumonia with chronic obstructive pulmonary disease exacerbation. I will continue breathing treatment. I will decrease the frequency of the steroids. Continue antibiotics. He still complains of shortness of breath, but he is getting better. Continue with oxygen. 2. Possible alcohol withdrawal symptoms. He is not having shakiness today. He is less anxious. He is not having hallucinations. I have decreased the frequency of his Librium as well. 3. Thrombocytopenia likely due to liver dysfunction. 4. Hepatitis C, recently diagnosed with a positive antibody. I have requested viral load and genotypes. He will follow up with Gastroenterology as an outpatient. 5. Elevated LFTs likely secondary to liver cirrhosis and hepatitis. 6. Possible liver cirrhosis, diagnosed by images. Also, he has elevated LFTs. As per the patient, he drinks 4/7 days of the week at least. He is willing to stop completely. I will continue with daily cessation education. 7. Hypertension stable. 8. Tobacco abuse. This patient has been highly advised against tobacco use. We will continue with daily cessation education. 9. Alcohol abuse. Aware. I will continue with daily cessation education as well. 10. Arthritis. We will monitor. As per the patient, he has been using Goody's powder 2 to 3 times a day. I recommended to stop it. cc: Patrick Lara MD
[2019-02-22] MEDS: SYMBICORT 160/4.5 MICROGM INHALER INH SCH (16:51)
[2019-02-23] MEDS: DUONEB (A & A) INH SCH ×7 (00:37→23:15)
[2019-02-23] MEDS: SYMBICORT 160/4.5 MICROGM INHALER INH SCH ×3 (03:54→20:06)
[2019-02-23] MEDS: PRILOSEC PO SCH (06:00)
[2019-02-23] MEDS: NICODERM PATCH TD SCH ×2 (06:04→09:01)
--- NOTE | 2019-02-23 06:33 | Diag Imaging Result Doc PS360 ---
EXAM: CHEST-PORTABLE HISTORY: dyspnea TECHNIQUE: Portable chest single view COMPARISON: 02/19/2019 FINDINGS: The lungs are well expanded. The heart is not enlarged. The vessels are mildly distended. There are no infiltrates. No effusion identified. IMPRESSION: Persistent pulmonary edema. Electronically signed by Silvino Pacheco 02/23/2019 6:30 AM
[2019-02-23 07:31] LABS: BASO# 0.02 X1000 (0.0-0.2); BASO% 0.2 % (0.0-0.8); HEMATOCRIT 44.6 % (42.0-52.0); HEMOGLOBIN 15.5 g/dL (14.0-18.0); IMM GRAN# 0.25 X1000 (0.0-0.04); IMM GRAN% 2.4 % (0.0-0.5); LYMPH% 10.5 % (20.5-51.1); MCH 35.6 PG (27-31); MCHC 34.8 g/dL (33-37); MCV 102.3 FL (81-99); MONO% 5.7 % (1.7-9.3); MPV 9.2 FL (7.4-10.4); NEUT# 8.52 X1000 (1.4-6.5); NEUT% 81.2 % (42.2-75.2); PLT 94 X1000 (130-400); RBC 4.36 XMIL (4.7-6.1); RDW 13.6 % (11.5-14.5); WBC 10.49 X1000 (4.8-10.8)
[2019-02-23 07:50] LABS: AGAP 9; ALB/GLOB RATIO 0.7; ALBUMIN 3.1 g/dL (3.5-5.0); ALKALINE PHOSPHATASE 148 U/L (32-122); BUN 18 mg/dL (8-22); CALCIUM 8.5 mg/dL (8.8-10.2); CHLORIDE 105 mmol/L (98-107); COSMO 283; CREATININE 0.8 mg/dL (0.7-1.2); ESTIMATED GFR > 60; GLUCOSE 164 mg/dL (70-104); GOT 84 U/L (10-34); GPT 116 U/L (10-44); POTASSIUM 3.8 mmol/L (3.5-5.1); SODIUM 139 mmol/L (136-145); TCO2 25 mmol/L (25-35); TOTAL BILIRUBIN 0.78 mg/dL (0.20-1.00); TOTAL PROTEIN 7.3 g/dL (6.3-8.3)
[2019-02-23 08:00] LABS: HEPATITIS C GENOTYPE SEE COMMENTS
[2019-02-23] MEDS: SOLU-MEDROL IV SCH ×2 (09:00)
[2019-02-23] MEDS: ROCEPHIN 1 GM in NS 50 ML IV SCH (09:00)
[2019-02-23] MEDS: FOLIC ACID PO SCH (09:00)
[2019-02-23] MEDS: LOVENOX SUBQ SCH (09:01)
[2019-02-23] MEDS: PRINIVIL PO SCH (09:01)
[2019-02-23] MEDS: LIBRIUM PO SCH ×3 (09:01→22:50)
[2019-02-23] MEDS ORDERED: LASIX IV ONE ×2 (10:11→16:00)
[2019-02-23] MEDS: ZITHROMAX 500 MG/NS 500 MG/250 ML IVPB IV SCH (11:04)
--- NOTE | 2019-02-23 18:13 | PROGRESS NOTE ---
DATE: 02/23/2019 SUBJECTIVE: This patient is still complaining of shortness of breath, but he is feeling better. I will decrease the dose of the steroids and Librium. Hopefully this patient can be discharged in the next 48 hours. He is still having crackles bilaterally, so I will give him 2 doses of Lasix today for a total of 80 mg. OBJECTIVE: Vital Signs: Temperature 97.5 degrees, pulse 93, respiratory rate 19, blood pressure 160/81, oxygen saturation 94% on 2 L of nasal cannula. HEENT: Head normocephalic. No trauma. PERRLA. Neck: Supple. No JVD. No masses. Central trachea. Chest: Decreased breath sounds globally with prolonged expiratory phase and expiratory wheezing. He has crackles bilaterally, mostly at the level of the mid and lower lung. Abdomen: Soft, protuberant, slightly distended. Positive bowel sounds. Extremities: No edema. No clubbing. No cyanosis. Neurological: The patient is alert. He is oriented x3. No focal deficits. LABORATORY: WBC 10.4, hemoglobin 15.5, hematocrit 44.6, and platelets 94,000. Sodium 139, potassium 3.8, chloride 105, bicarbonate 25, BUN 18, creatinine 0.8, glucose 164, calcium 8.5. AST 84, ALT 116, alkaline phosphatase 148, albumin 3.1. ASSESSMENT AND PLAN: 1. Right lower lobe pneumonia with chronic obstructive pulmonary disease exacerbation. I will continue with breathing treatment, antibiotics. I will decrease the dose of the steroids today. He is still complaining of some shortness of breath, mostly with physical activity. Continue with oxygen supplementation. 2. Mild alcohol withdrawal symptoms. He is not having shakiness today, but he has been having confusion, mostly during the night. I have decreased the amount of Librium as well. He seems to be better today, in the morning. 3. Thrombocytopenia. Likely due to liver dysfunction. 4. Hepatitis C, recently diagnosed with a positive antibody. We will monitor this patient as an outpatient. I have requested viral load and genotypes. 5. Possible liver cirrhosis. Diagnosed by images and elevated LFTs in a patient with history of alcohol abuse. He drinks 4/7 days of the week at least and he is willing to stop completely. I will continue with daily cessation education. 6. Hypertension. I will add a blood pressure medication for this patient. 7. Tobacco abuse. This patient has been highly advised against tobacco use. I will continue with daily cessation education. 8. Alcohol abuse. Aware. I will continue with daily cessation education as well. He is willing to stop both cigarettes and alcohol. 9. Arthritis. We will continue to monitor. This patient has been using Goody's Powder 2 to 3 times a day. I recommended to stop it. 10. I believe this patient is getting better. He still has pulmonary edema, even though I have been providing Lasix every day. I will increase the frequency of Lasix today. I will give him Lasix twice and I will monitor this patient tomorrow. Hopefully this patient can be discharged in the next 24 to 48 hours. cc: Patrick Lara MD
[2019-02-23] MEDS ORDERED: NORVASC PO ONE ×2 (18:37→23:00)
[2019-02-23] MEDS: ATIVAN IV PRN (22:50)
[2019-02-24] MEDS: DUONEB (A & A) INH SCH ×6 (04:40→23:29)
[2019-02-24] MEDS: PRILOSEC PO SCH ×2 (05:56→09:23)
[2019-02-24] MEDS: SYMBICORT 160/4.5 MICROGM INHALER INH SCH ×2 (08:16→19:29)
[2019-02-24 08:46] LABS: AGAP 10; ALB/GLOB RATIO 0.8; ALBUMIN 3.1 g/dL (3.5-5.0); ALKALINE PHOSPHATASE 162 U/L (32-122); BUN 19 mg/dL (8-22); CALCIUM 8.5 mg/dL (8.8-10.2); CHLORIDE 104 mmol/L (98-107); COSMO 288; CREATININE 0.7 mg/dL (0.7-1.2); ESTIMATED GFR > 60; GLUCOSE 140 mg/dL (70-104); GOT 94 U/L (10-34); GPT 134 U/L (10-44); POTASSIUM 3.7 mmol/L (3.5-5.1); SODIUM 142 mmol/L (136-145); TCO2 28 mmol/L (25-35); TOTAL BILIRUBIN 0.71 mg/dL (0.20-1.00); TOTAL PROTEIN 7.2 g/dL (6.3-8.3)
[2019-02-24] MEDS: FOLIC ACID PO SCH (09:23)
[2019-02-24] MEDS: NICODERM PATCH TD SCH (09:23)
[2019-02-24] MEDS: LOVENOX SUBQ SCH (09:23)
[2019-02-24] MEDS: PRINIVIL PO SCH (09:23)
[2019-02-24] MEDS: SOLU-MEDROL IV SCH (09:23)
[2019-02-24] MEDS: ROCEPHIN 1 GM in NS 50 ML IV SCH (09:23)
[2019-02-24] MEDS ORDERED: LASIX IV ONE (11:47)
[2019-02-24] MEDS: ZITHROMAX 500 MG/NS 500 MG/250 ML IVPB IV SCH (12:02)
[2019-02-24] MEDS: LIBRIUM PO SCH (12:03)
[2019-02-24] MEDS: ATIVAN IV PRN (13:11)
[2019-02-24] MEDS ORDERED: THERA M PLUS PO ONE (14:13)
--- NOTE | 2019-02-24 14:58 | PROGRESS NOTE ---
DATE: 02/24/2019 SUBJECTIVE: This patient is feeling better. I will decrease the dose of Librium to 5 mg twice a day. Hopefully tomorrow if the patient is doing fine, I will discharge this patient home. I have requested an evaluation by Respiratory Therapy to see if this patient needs to go home with oxygen. I had a large conversation with the patient and the daughter at the bedside. He will follow up with Pulmonology and also Gastroenterology Department as an outpatient. He is still having crackles bilaterally. I will give him an extra dose of Lasix. He is weak, and Physical Therapy is working on this patient. Hopefully, tomorrow can discharge this patient home. I do not see any signs of withdrawal today. OBJECTIVE: Vital Signs: Temperature 98.2, pulse 103, respiratory rate 18, blood pressure 135/84, oxygen saturation 95 on room air. HEENT: Head normocephalic. No trauma. PERRLA. Neck: Supple. No JVD. No masses. Central trachea. Chest: Decreased breath sounds globally with prolonged expiratory phase and he is still having some expiratory wheezing and crackles bilaterally mostly at the bases. Soft, protuberant, slightly distended. Positive bowel sounds. Extremities: No edema, no clubbing, no cyanosis. Neurological Examination: This patient is alert. He is oriented x3. No focal deficits. LABORATORY: Sodium 142, potassium 3.7, chloride 104, bicarbonate 28, BUN 19, creatinine 0.7, glucose 140, calcium 8.5, AST 94, ALT 134, alkaline phosphatase 162, albumin 3.1. ASSESSMENT AND PLAN: 1. Right lower lobe pneumonia with chronic obstructive pulmonary disease exacerbation, also he has some pulmonary vascular congestion/pulmonary edema. We will continue breathing treatment and antibiotics. I will continue with same amount of steroids and hopefully tomorrow will switch it to p.o. He complains of shortness of breath with physical activity. I have requested an evaluation to see if this patient needs home oxygen. I will give him an extra dose of Lasix today and probably I will discharge this patient home with Lasix. He seems to be getting better. He is still having wheezing though. 2. Alcohol withdrawal symptoms. He is not having shakiness today. He was not confused during this night but he was confused the previous night. I have decreased the amount of Librium again. He seems to be doing better. I will monitor for 1 more day to send this patient hopefully tomorrow. 3. Thrombocytopenia likely due to liver dysfunction. 4. Hepatitis C recently diagnosed with a positive antibody. Will monitor this patient. I have requested viral load and genotype. 5. Possible liver cirrhosis diagnosed by images and elevated liver function tests in a patient with history of alcohol abuse. He drinks 4 out of 7 days a week at least, and he is willing to stop completely. I will continue daily cessation education. 6. Hypertension. He has been on lisinopril daily and I have placed this patient on amlodipine as well. Blood pressure seems to be doing a little bit better. 7. Tobacco abuse. This patient has been advised against tobacco use. I will continue daily cessation education. 8. Alcohol abuse. Aware. I will continue daily cessation education as well. He is willing to stop completely. 9. Arthritis. Will continue to monitor. The patient has been using Goody's Powder 2-3 times a day, I recommended to stop it. The patient is getting better. He is still has some pulmonary edema. He is still having shortness of breath. Hopefully, if he is okay in the morning, I will discharge this patient home. I will give him an extra dose of Lasix. Hopefully, I will discharge him tomorrow. He will need to follow up with Pulmonary Department and Gastroenterology Department. cc: Patrick Lara MD
[2019-02-24] MEDS: VITAMIN B-1 PO SCH (16:26)
[2019-02-24] MEDS: NORVASC PO SCH (16:27)
[2019-02-24] MEDS ORDERED: LIBRIUM PO SCH (23:00)
[2019-02-25] MEDS: DUONEB (A & A) INH SCH ×3 (04:43→12:00)
[2019-02-25] MEDS: PRILOSEC PO SCH (06:32)
[2019-02-25 07:48] VITALS: BP 154/84
[2019-02-25 08:29] LABS: AGAP 8; ALB/GLOB RATIO 0.7; ALKALINE PHOSPHATASE 164 U/L (32-122); BUN 20 mg/dL (8-22); CALCIUM 8.3 mg/dL (8.8-10.2); CHLORIDE 103 mmol/L (98-107); COSMO 279; CREATININE 0.7 mg/dL (0.7-1.2); ESTIMATED GFR > 60; GLUCOSE 120 mg/dL (70-104); GOT 87 U/L (10-34); GPT 137 U/L (10-44); POTASSIUM 3.6 mmol/L (3.5-5.1); SODIUM 138 mmol/L (136-145); TCO2 27 mmol/L (25-35); TOTAL BILIRUBIN 0.98 mg/dL (0.20-1.00); TOTAL PROTEIN 7.1 g/dL (6.3-8.3)
[2019-02-25] MEDS: ROCEPHIN 1 GM in NS 50 ML IV SCH (08:54)
[2019-02-25] MEDS: SOLU-MEDROL IV SCH (08:54)
[2019-02-25] MEDS: FOLIC ACID PO SCH (08:55)
[2019-02-25] MEDS: VITAMIN B-1 PO SCH (08:55)
[2019-02-25] MEDS: NORVASC PO SCH (08:55)
[2019-02-25] MEDS: LOVENOX SUBQ SCH (08:55)
[2019-02-25] MEDS: PRINIVIL PO SCH (08:55)
[2019-02-25] MEDS: NICODERM PATCH TD SCH (08:55)
[2019-02-25] MEDS: SYMBICORT 160/4.5 MICROGM INHALER INH SCH (09:18)
--- NOTE | 2019-02-25 16:27 | DISCHARGE SUMMARY ---
ADMISSION DATE: 02/18/2019 DISCHARGE DATE: 02/25/2019 DISCHARGE DIAGNOSES: 1. Right lower lobe pneumonia. 2. Chronic obstructive pulmonary disease exacerbation. 3. Alcohol withdrawal symptoms. 4. Thrombocytopenia. 5. Possible liver cirrhosis. 6. Hepatitis C, recently diagnosed during this hospitalization. 7. Hypertension. 8. Tobacco abuse. 9. Alcohol abuse. 10.History of arthritis. PROCEDURES PERFORMED: 1. Abdominal ultrasound date 02/18/2019. Impression: Splenomegaly and probably liver cirrhosis. 2. Echocardiogram dated 02/18/2019. In summary, the ejection fraction is 70-75%. No wall motion abnormalities. Pulmonary pressure estimated at 24 mmHg; the rest of the study seems to be within normal limits. 3. Chest x-ray dated 02/18/2019. Impression: Improved pulmonary edema versus pneumonia in the right lower lobe. 4. Chest x-ray dated 02/23/2019. Impression: Persistent pulmonary edema. HOSPITAL COURSE: This is a 58-year-old male with a history of hypertension, arthritis, admitted on 02/18/2019. He stated that a few days ago, he went to see his primary care doctor and he was told that he had shingles. Also as per the patient, that doctor wanted to order an MRI, colonoscopy and a stress test on this patient. The primary care doctor stated that the patient had elevated liver enzymes and also that she saw some elevation of his heart numbers on his labs. Then the patient developed cough and he started feeling more tired and weak throughout the week. The day before admission, he woke up and he was unable to breathe. He stated that he was not able to feel this way before. The patient called the ambulance. EMS on arrival stated that his oxygen saturations were in the low 90s and they placed the patient on oxygen and brought him to the ER. Apparently he has been having some yellow phlegm since a few days ago. Apparently also he had some coronary stents placed in 2011 at [facility]. However, he only takes medications for his hypertension. He denied any chest pain at that time; however, he was short of breath. He denied any fever or chills, or problems urinating. 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 He has been doing this for more than 30 years. He has been taking valacyclovir and lisinopril since he saw his primary care doctor last week. He was admitted to the medical floor and placed on telemetry. We noticed that he had some pulmonary edema and also right lower lobe pneumonia. We started treating this patient with antibiotics, breathing treatments, and oxygen supplementation and pulmonary toilet. He received multiple rounds of Lasix and he started to feel better on a daily basis. Because of his elevated liver enzymes and history of alcohol use, we checked an abdominal ultrasound that showed splenomegaly and the possibility of liver cirrhosis. Also we checked a hepatitis profile and he was positive for hepatitis C antibody. I discussed briefly the case with Dr. Zaragoza and he recommended that we obtain a viral load and genotype for this patient, so he can see him as an outpatient and give him treatment for his hepatitis C. This has been explained to the patient and the family multiple times. The patient has been improving on a daily basis. I asked for home oxygen evaluation to see if this patient will need to go home with oxygen, but his oxygen saturation was in the 90s on room air when he was resting and also with physical activity. Echocardiogram was within normal limits. At some point, I think 3 or 4 days ago, he started having some problems including hallucinations and some anxiety and tremors. I put him on Librium to avoid withdrawal symptoms and also gave him as- needed Ativan. He responded well to the treatment. Also he received thiamine and I put him on folic acid as well. Today, this patient is feeling much better. It is felt that he can go home safely. He states that he is not going to drink or smoke anymore and he is willing to change the way he eats. He will need to follow up with Dr. Zaragoza and with Dr. Bravo, a pulmonary doctor, as an outpatient. DISCHARGE PHYSICAL EXAMINATION: VITAL SIGNS: Temperature 97.6 degrees, pulse 81, respiratory rate 18, blood pressure 154/84, oxygen saturation 94% on room air. HEENT: Head normocephalic, atraumatic. PERRLA. NECK: Supple. No JVD. Central trachea. CHEST: Decreased breath sounds at the bases with prolonged expiratory phase. No wheezing today. Mild rales at the bases. ABDOMEN: Soft, protuberant, slightly distended. Positive bowel sounds. EXTREMITIES: No clubbing, cyanosis or edema. NEUROLOGICAL: The patient is alert and oriented x 3. No focal deficits. LABORATORY DATA: Sodium 138, potassium 3.6, chloride 103, bicarbonate 27, BUN 20, creatinine 0.7, glucose 120, calcium 8.3. AST 87, ALT 137, alkaline phosphatase 164, albumin 3. FOLLOWUP: With Dr. Bravo in 1 to 2 weeks. Follow up with Dr. Zaragoza in 1 to 2 weeks as well. DISCHARGE MEDICATIONS: 1. Ventolin HFA, 2 puffs inhaled q.6h as needed for shortness of breath. 2. Symbicort, 2 puffs inhaled twice daily. 3. Cefdinir 200 mg p.o. twice daily. 4. Folic acid 1 mg p.o. daily. 5. Furosemide 20 mg p.o. daily. 6. Atrovent HFA, 2 puffs inhaled 4 times q. day. 7. Lisinopril 20 mg p.o. daily. 8. Medrol Dosepak, 4 mg p.o. as directed. 9. Omeprazole 20 mg p.o. daily. 10.Spironolactone 50 mg p.o. daily. 11.Thiamine 100 mg p.o. q.a.m. Time spent discharging this patient was 35 minutes. cc: Patrick Lara MD
== END 2019-02-25 13:32 | disposition home or self-care (01) | DRG 190 ==
LOC: ED 04:57 → 3N 04:58
PROVIDERS: ATTEND Internal Medicine
CPT/HCPCS: 71010; 71045; 76700; 80053; 80061; 80074; 82550; 82553; 82607; 82728; 82746; 82784; 83036; 83540; 83550; 83721; 83735; 83880; 84100; 84443; 84484; 85025; 86701; 87389; 87522; 87902; 93005; 93306; 94640; 94760; 94761; 97161; 99284; A9270; J0456; J0696; J1650; J1940; J2060; J2920; J2930

== ENCOUNTER 2019-08-23 17:09 | Inpatient (IN) ==
[2019-08-23] MEDS ORDERED: PROTONIX IV ONE (17:57)
[2019-08-23] MEDS ORDERED: MORPHINE IV ONE (17:57)
[2019-08-23] MEDS ORDERED: SODIUM CHLORIDE 0.9% INJ ONE ×2 (17:57→21:56)
[2019-08-23] MEDS ORDERED: ZOFRAN IV ONE ×2 (17:57→19:14)
[2019-08-23] MEDS ORDERED: NS 1,000 ML IV ONE ×3 (17:57→21:57)
[2019-08-23 18:08] LABS: BASO# 0.09 X1000 (0.0-0.2); BASO% 0.7 % (0.0-0.8); EOS# 0.23 X1000 (0.0-0.7); EOS% 1.8 % (0.0-10.0); HEMATOCRIT 36.2 % (42.0-52.0); HEMOGLOBIN 11.6 g/dL (14.0-18.0); IMM GRAN# 0.08 X1000 (0.0-0.04); IMM GRAN% 0.6 % (0.0-0.5); LYMPH# 2.12 X1000 (1.2-3.4); LYMPH% 16.6 % (20.5-51.1); MCH 30.1 PG (27-31); MONO% 8.6 % (1.7-9.3); MPV 9.4 FL (7.4-10.4); NEUT# 9.17 X1000 (1.4-6.5); NEUT% 71.7 % (42.2-75.2); PLT 157 X1000 (130-400); RBC 3.85 XMIL (4.7-6.1); RDW 16.3 % (11.5-14.5); WBC 12.79 X1000 (4.8-10.8)
[2019-08-23 18:17] LABS: INR 1.33; PROTIME 16.7 Seconds (11.0-16.0)
[2019-08-23 18:18] LABS: PTT 31.8 Seconds (22.3-41.8)
[2019-08-23 18:32] LABS: AGAP 11; ALB/GLOB RATIO 0.6; ALBUMIN 2.6 g/dL (3.5-5.0); ALKALINE PHOSPHATASE 160 U/L (32-122); BUN 16 mg/dL (8-22); CALCIUM 7.9 mg/dL (8.8-10.2); CHLORIDE 99 mmol/L (98-107); COSMO 271; CREATININE 0.9 mg/dL (0.7-1.2); ESTIMATED GFR > 60; GLUCOSE 164 mg/dL (70-104); GOT 70 U/L (10-34); GPT 42 U/L (10-44); LIPASE 58 U/L (13-60); POTASSIUM 4.8 mmol/L (3.5-5.1); SODIUM 133 mmol/L (136-145); TCO2 23 mmol/L (25-35); TOTAL PROTEIN 6.6 g/dL (6.3-8.3)
[2019-08-23] MEDS ORDERED: PROTONIX 80 MG in NS 80 ML IV SCH (19:00)
[2019-08-23] MEDS ORDERED: SANDOSTATIN 500 MICROGM in D5W 100 ML IV SCH (19:00)
--- NOTE | 2019-08-23 19:36 | PROVIDER DOCUMENTATION ---
This chart was entered by Maty Rivera Scribe, acting as scribe for Cat Campos CRNP. HPI-Abdominal Pain/GI Problem - General Chief Complaint: Vomiting Blood Stated Complaint: VOMITING BLOOD,HEP C,LIVER CANCER Time Seen by Provider: 08/23/19 17:42 Source: patient, family Allergies/Adverse Reactions: Patient Allergies Allergy/AdvReac Type Severity Reaction Status Date / Time No Known Allergies Allergy Verified 08/23/19 17:55 Home Medications: Home Medication List Medication Instructions Recorded Confirmed Last Taken Type Diphenhydramine HCl [Benadryl 1 tab PO BID 08/23/19 08/23/19 Unknown History Allergy] Furosemide [Lasix] 40 mg PO BID 08/23/19 08/23/19 Unknown History Potassium 1 tab PO BID 08/23/19 08/23/19 Unknown History Spironolactone [Aldactone] 50 mg PO BID 08/23/19 08/23/19 Unknown History Thiamine [Vitamin B-1] 100 mg PO QHS 08/23/19 08/23/19 Unknown History - History of Present Illness-ABD Nature of Presenting Problems: Patient is a 58 yowm who c/o bright and dark red hematemsis starting around 1600 today associated with abd pain. hx of liver cirrhosis, liver cancer, hep c, and esophageal varices. not on chemo for cancer currently. Denies any other co mplaints. Abdominal Pain Onset Location: reports: generalized abdomen Pain Radiation: reports: no radiation Severity in ED: reports: moderate Onset/Duration: reports: 1-3 hours ago Timing: reports: still present Activities at Onset: reports: none Associated Symptoms: reports: vomiting (bright and dark red blood) Dark Stools Present?: reports: none noticed Rectal Bleeding: reports: none Rectal Pain: reports: none Emesis Description: reports: red blood (dark and bright) Review of Systems - Adult - REVIEW OF SYSTEMS - ADULT Constitutional: reports: no symptoms reported. denies: fever, fatique, night sweats Eyes: reports: no symptoms reported Ears, Nose, Mouth & Throat: reports: no symptoms reported Cardiovascular: reports: no symptoms reported Respiratory: reports: no symptoms reported Gastrointestinal: reports: see HPI, abdominal pain (generalized), hematemesis (bright and dark red blood). denies: diarrhea, nausea, rectal bleeding Genitourinary: reports: no symptoms reported Musculoskeletal: reports: no symptoms reported Integumentary: reports: no symptoms reported Neurological: reports: no symptoms reported Psychiatric: reports: no symptoms reported Endocrine: reports: no symptoms reported Hematologic/Lymphatic: reports: no symptoms reported Allergic/Immunologic: reports: no symptoms reported All Other Systems: Reviewed and Negative Past History - Adult - PAST MEDICAL HISTORY-ADULT Review of Records: reports: Nursing Assessment Review, Medications Reviewed, Social history reviewed & non-contributory. Major Childhood Illnesses: reports: denies history Cardiovascular: reports: [place], other (SINGLE CARDIAC STINT 2011) Respiratory: reports: denies history Gastrointestinal: reports: cancer (liver), hepatitis (C), liver disease (cirrhosis) Obstetrical/Gynecological: reports: denies history Genitourinary: reports: denies history Musculoskeletal: reports: denies history Neurological: reports: denies history Endocrine/Immune: reports: denies history Other Conditions: reports: denies history - PRIOR SURGERIES/PROCEDURES Surgical/Procedure History: reports: cardiac stent, other - IMMUNIZATION STATUS Childhood Immunizations: See Nurse Assessment Flu Vaccine: See Nurse Assessment - FAMILY HISTORY Family History: reviewed, not pertinent - SOCIAL HISTORY Smoking: quit greater than 1 year, other (former smoker) Substance Use: none presently/history of abuse (40 yrs former alcohol abuse) Physical Exam-General - PHYSICAL EXAM-ADULT Initial Vital Signs Reviewed: Yes - CONSTITUTIONAL General Appearance: alert, moderate distress, other (toxic in appearance). negative: appears well, no apparent distress, anxious - EYES Eyes: PERRL/EOMI, pink conjunctivae - HEAD, EARS, NOSE, MOUTH & THROAT HENMT: normocephalic/atraumatic, moist mucous membranes, other (dried blood around lips) - NECK Neck: non-tender, full range of motion, supple, normal inspection - RESPIRATORY Respiratory: chest non-tender, lungs clear, normal breath sounds, no respiratory distress, no accessory muscle use - CARDIOVASCULAR Cardiovascular: normal peripheral pulses, regular rate, rhythm, no gallop, no murmur, tachycardia - GASTROINTESTINAL (ABDOMEN) Abdominal Exam: normal bowel sounds, distended (mild), tenderness (general diffuse to palp but more so in epigastrum). negative: non tender, soft, guarding, rigid, rebound - MUSCULOSKELETAL Back Exam: normal inspection Extremity: normal range of motion, non-tender, normal inspection - SKIN Integumentary: normal color, warm/dry. negative: cyanosis, diaphoresis, jaundice, mottled - NEUROLOGIC Neurologic: grossly normal, no motor/sensory deficits - PSYCHIATRIC Psych/Mental Status: normal mood/affect, normal thought content, normal thought process, oriented x 3 Progress - PLAN OF CARE/RESULTS Progress/Plan/Lab Results: Vital Signs - 8 hr 08/23/19 17:16 Temperature 98.1 F Pulse Rate 120 H Respiratory Rate 18 Blood Pressure 100/58 O2 Sat by Pulse Oximetry 98 Orders Category Date Time Status Cardiac Monitoring DIRECTED Care 08/23/19 17:58 Active Nursing- Obtain EKG ONCE Care 08/23/19 17:58 Active CHEST-2 VIEWS [RAD] Stat Exams 08/23/19 17:[address] ABD/PELVIS W/IV CONT ONLY [CT] Stat Exams 08/23/19 17:58 Ordered CBC WITH DIFF [HEME] Stat Lab 08/23/19 17:56 Ordered COMPREHENSIVE METABOLIC PANEL [CHEM] Stat Lab 08/23/19 17:56 Uncollected LIPASE [CHEM] Stat Lab 08/23/19 17:56 Uncollected PROTIME WITH INR [COAG] Stat Lab 08/23/19 17:56 Ordered PTT [COAG] Stat Lab 08/23/19 17:56 Ordered TYPE & SCREEN [BBK] Stat Lab 08/23/19 17:57 Uncollected UA NIMS W/REFLEX CULT [URINALYSIS] Stat Lab 08/23/19 17:57 Uncollected 0.9% Sodium Chloride Inj [Ns] 1,000 ml Med 08/23/19 17:57 Active IV 100 mls/hr Morphine Med 08/23/19 17:57 Discontinued 2 mg IV NOW ONE Ondansetron [Zofran] Med 08/23/19 17:57 Once 4 mg IV NOW ONE Pantoprazole [Protonix] Med 08/23/19 17:57 Discontinued 40 mg IV NOW ONE Sodium Chloride 0.9% Med 08/23/19 17:57 Once 10 ml INJ NOW ONE EKG [EKG] Stat Ther 08/23/19 17:58 Ordered Result Diagrams: 08/23/19 17:37 08/23/19 17:37 - REASSESSMENT Reassessment #1 Time Reassessed: 19:12 Status: other (Admitting [facility]PS paged.) - EKG 1 Time of EKG reading by physician:: 18:36 EKG Read and Signed by:: Yandel Aguilar EKG Interpretation (*Must complete 3 of following elements*): Normal (borderline) Rate: 108 Rhythm: ST Comments: possible left atrial enlargement - CONSULTS/PCP/HOSPITALIST Notification #1 *Consult/PCP/Hospitalist*: Dr. Zaragoza Time Discussed: 18:40 Reason/Comments: hematemesis,liver cirrhosis, liver cancer Consult Disposition: Admit (Dr. Aguilar spoke with Dr. Zaragoza who states to admit to [facility], give Sandostatin, Protinix, 1 unit of platelets, and H&H q4h.) #2 Consult: Dr. Ayers Time Discussed: 19:26 Consult Disposition: Admit Departure - Departure Date of Disposition Decision: 08/23/19 Time of Disposition Decision: 18:40 DIAGNOSIS: Liver disease Hematemesis Qualifiers: Nausea presence: with nausea Qualified Code(s): K92.0 - Hematemesis Abdominal pain Qualifiers: Abdominal location: unspecified location Qualified Code(s): R10.9 - Unspecified abdominal pain Disposition: ADMITTED INPATIENT 09 Certified Medical Emergency: Emergent Condition: Serious Referrals and Follow-Ups: Jeff Bacon MD [Primary Care Provider] - - Critical Care Note This patient required my direct & personal management of CC.: No Attestation - Physician/ HIREN Attestation Patient care was provided by Advanced Practice Provider:: Yes Advanced Practice Provider:: Cat Campos Advanced Practice Provider documentation review:: The Mid-level provider documentation, treatment plan and medical decision making was reviewed by the physician who agrees with all treatment and medical decision making by the MLP. The physician spent face to face time with patient:: No Advanced Practice Provider documentation review:: Supervising physician onsite and consulted in the evaluation and care of this patient. The physician did not have a face to face encounter with the patient. This chart was documented by the indicated scribe, (Maty Rivera Scribe) and accurately reflects the services I performed and decisions made by me, Cat Campos CRNP, as attested by the provider's signature.
--- NOTE | 2019-08-23 20:06 | Diag Imaging Result Doc PS360 ---
EXAM: CT ABD/PELVIS W/IV CONT ONLY INDICATION: diffuse abd pain, hematemesis TECHNIQUE: This exam was performed using automated exposure control, adjustment of mA or kV according to patient size, and/or use of iterative reconstruction technique. COMPARISON: None. FINDINGS: There is mild subsegmental atelectasis at the lung bases. The liver is cirrhotic there is a hypodense irregular mass at the dome of the liver measuring up to 8.6 x 5.4 cm axially and there is suggestion of vague enhancement at its periphery. This is highly suspicious for neoplasm, possibly hepatocellular carcinoma. There is a similar smaller mass in the left hepatic lobe on image 52 of series 4 measuring up to 2.3 x 2.1 cm. There are a couple of other smaller hypodense foci in the right and left hepatic lobes that are more nonspecific. There is marked enlargement of the spleen measuring up to 19.5 cm craniocaudally. The gallbladder wall appears thickened and there is pericholecystic fat opacification. Cholecystitis cannot be excluded. There is no evidence of significant biliary dilatation. The pancreas, adrenal glands, kidneys, and urinary bladder are grossly unremarkable. There is evidence of a prior appendectomy. There is no evidence of significant bowel wall thickening or bowel obstruction. The stomach is moderately distended. The remainder of the GI tract is essentially unremarkable. There is mild edema at the root of mesentery that is nonspecific. There are small shotty nonspecific mesenteric lymph nodes. There are degenerative changes at the lower lumbar spine. There is nothing that would necessarily suggest bony metastatic disease. IMPRESSION: 1.Cirrhosis. 2.Irregular mass at the dome of the liver and a few other smaller masses that are highly suspicious for neoplasm. Consider hepatocellular carcinoma. 3.Marked splenomegaly. 4.Gallbladder wall thickening with surrounding edema suspicious for cholecystitis. 5.Nonspecific shotty mesenteric lymph nodes and mild mesenteric edema. Electronically signed by Hever Rivera 08/23/2019 8:04 PM
--- NOTE | 2019-08-23 20:45 | Diag Imaging Result Doc PS360 ---
EXAM: CHEST-2 VIEWS INDICATION: vomiting TECHNIQUE: 2 views COMPARISON: 02/13/2019 FINDINGS: The lungs are grossly clear. There is no discrete pleural fluid collection or pneumothorax. The cardiomediastinal silhouette and central vasculature are grossly unremarkable. IMPRESSION: No evidence of acute pathology by plain radiograph. Electronically signed by Hever Rivera 08/23/2019 8:43 PM
[2019-08-23] MEDS ORDERED: NUBAIN IV ONE ×2 (21:20→21:30)
--- NOTE | 2019-08-23 21:28 | HISTORY AND PHYSICAL ---
PHYSICIAN: Dr. Anival rGanados. SHIPYARD LABORER: Ilya Zaragoza. HISTORY OF PRESENT ILLNESS: Mr. Jose Anand is a 58-year-old, male, with a history of hepatocellular cancer secondary to hepatitis C. He is scheduled to follow, I believe with the [facility] in [place]. He comes in today because he was feeling nauseous when he woke up and sometime around 3 p.m., started having hematemesis. He said he has vomited at least 5 times, each time dark bloody contents. The patient oddly enough, says that after the fifth time when he vomited, said he felt a little bit better because the nausea had subsided. He also developed simultaneous diffuse abdominal pain which was sharp, was constant, but that too has decreased in intensity. He denies any melanotic stool or hematochezia. He denies any postural lightheadedness. No cough. No fever. No chills. He denies any bleeding from any other orifice. He denies palpitations or chest pain, or any cardiorespiratory complaints. He denies any dysphagia. REVIEW OF SYSTEMS: A 12-system review was done. Positive findings per HPI. ALLERGIES: None. HOME MEDICATIONS: Patient takes thiamine 100 mg at bedtime, Aldactone 50 mg b.i.d., Benadryl 25mg bid Lasix 40 b.i.d., potassium 1 tablet b.i.d. SURGICAL HISTORY: The patient had coronary stents placed in 2011, arthroscopic knee surgery, 3 back operations. SOCIAL HISTORY: The patient says he is no longer actively smoking or drinking. FAMILY HISTORY: Notable for coronary artery disease and breast cancer in first- degree relatives. LABORATORY AND DIAGNOSTIC DATA: White count 12,000, hemoglobin and hematocrit 11 and 36, platelets 157,000, with normal differential. Sodium 133, BUN 16, creatinine 0.9, glucose 164, calcium 7.9, AST 70, ALT 42, alkaline phosphatase 160, albumin 2.6. Lipase is normal. PTT is 16.7, INR 1.3. CT of abdomen and pelvis was done, and it showed cirrhosis with irregular mass in the dome of the liver with smaller masses highly suspicious for neoplasm. Marked splenomegaly. Gallbladder thickening with surrounding edema suspicious for cholecystitis. Chest film reviewed by me, no acute infiltrate noted. PHYSICAL EXAMINATION: GENERAL: A middle-aged, man, not in acute distress. VITAL SIGNS: Blood pressure is 132/72, heart rate is 109, respiratory rate is 20, temperature is 98.1 degrees, 100% on room air. GENERAL: He is alert and oriented to person, place, time. Normal mood and affect. HEAD: Normocephalic, atraumatic. EYES: PERRL, EOMI. He is anicteric and mildly pale. ENT: Grossly normal. No exudates or erythema. No cyanosis. NECK: Supple. No JVD or carotid bruit. No thyromegaly. CHEST: Clear when auscultated. Good air entry in both lung keen. CARDIOVASCULAR SYSTEM: First and second heart sounds heard. No gallops, murmurs, rubs. Rhythm is regular. ABDOMEN: Slightly distended, soft, with tenderness confined to the right upper quadrant and epigastric area, but no peritoneal signs. Bowel sounds are normal. RECTAL: Deferred. EXTREMITIES: No edema, clubbing, or cyanosis. Surprisingly, distal pulse volumes are full, regular, symmetrical. NEUROLOGICAL: No gross focal deficits. No asterixis. SKIN: Intact with no breakdown, lesions, or erythema. MUSCULOSKELETAL: Grossly normal. ASSESSMENT: 1. Upper gastrointestinal bleed, probably from esophageal varices in light of portal hypertension secondary to cirrhosis. 2. Mild hemorrhagic anemia, presumably from #1. 3. Cirrhosis secondary to hepatitis C. 4. Hepatocellular carcinoma secondary to #3. PLAN: Dr. Zaragoza was notified by the ER. The patient will be started on octreotide drip. Protonix will be given in the short term, one-time dose, but may be held since there is some conflicting data that may even make things worse in this situation with the varices. Empiric antibiotics will be given due to the fact that this subgroup of patients are prone to sepsis and infections, so broad-spectrum antibiotics will be given. The patient will be treated symptomatically. We will follow hemoglobin and hematocrit closely and transfuse 1 unit if hemoglobin is less than 8, because the patient has underlying coronary artery disease. Follow labs in the morning, and Dr. Zaragoza will be on hand to see patient in the morning. The patient needs to be admitted to at the very least a step-down unit, but preferably ICU, even though he is stable at this point in time. cc: OlakunMD Anival Sagastume MD Khurshid Yousuf, MD MTDD
[2019-08-23] MEDS ORDERED: NS 1,000 ML IV SCH (21:56)
[2019-08-23] MEDS ORDERED: TYLENOL PO PRN (21:56)
[2019-08-23] MEDS ORDERED: COMPAZINE IV ONE (21:57)
[2019-08-23] MEDS: ZOFRAN IV PRN (22:28)
[2019-08-23] MEDS: NS 1,000 ML IV ONE ×2 (22:35→22:43)
[2019-08-23] MEDS: LEVAQUIN 500 MG/D5W 500 MG/100 ML IVPB IV SCH (22:39)
[2019-08-24 00:01] LABS: HEMATOCRIT 30.5 % (42.0-52.0); HEMOGLOBIN 9.6 g/dL (14.0-18.0)
[2019-08-24 04:18] LABS: URINE SOURCE CLEAN CATCH
[2019-08-24 04:22] LABS: BILIRUBIN URINE NEGATIVE (NEGATIVE); BLOOD URINE NEGATIVE (NEGATIVE); COLOR YELLOW; GLUCOSE URINE NEGATIVE (NEGATIVE); KETONE URINE TRACE mg/dL (NEGATIVE); LEUKOCYTES URINE NEGATIVE (NEGATIVE); NITRITE URINE NEGATIVE (NEGATIVE); PH URINE 6.5; PROTEIN URINE 30 mg/dL (NEGATIVE); TURBIDITY URINE CLEAR (CLEAR); UROBILINOGEN URINE NORMAL (NORMAL)
[2019-08-24 04:23] LABS: UR EPITHELIAL CELLS <10 /HPF (<10); URINE BACTERIA NEGATIVE /HPF; URINE RBC <10 /HPF (<10); URINE WBC <10 /HPF (<10)
[2019-08-24 04:24] LABS: SP GRAVITY URINE 1.015
[2019-08-24] MEDS: NS 1,000 ML IV SCH ×3 (05:30→22:48)
[2019-08-24] MEDS: ZOFRAN IV PRN ×4 (05:48→21:49)
--- NOTE | 2019-08-24 07:41 | EKG Report ---
Test Performed on : 08/23/2019 6:36:51 PM Test Reason : CP Blood Pressure : / mmHG Vent. Rate : 108 BPM Atrial Rate : 108 BPM P-R Int : 140 ms QRS Dur : 062 ms QT Int : 338 ms P-R-T Axes : 060 046 042 degrees QTc Int : 452 ms Sinus tachycardia. Possible Left atrial enlargement Borderline ECG When compared with ECG of 18-FEB-2019 07:33, No significant change was found Unconfirmed Result
[2019-08-24 08:12] LABS: BASO# 0.03 X1000 (0.0-0.2); BASO% 0.3 % (0.0-0.8); EOS# 0.11 X1000 (0.0-0.7); EOS% 1.2 % (0.0-10.0); HEMATOCRIT 30.6 % (42.0-52.0); HEMOGLOBIN 9.5 g/dL (14.0-18.0); IMM GRAN# 0.05 X1000 (0.0-0.04); IMM GRAN% 0.5 % (0.0-0.5); LYMPH# 2.01 X1000 (1.2-3.4); LYMPH% 21.9 % (20.5-51.1); MCH 29.7 PG (27-31); MCV 95.6 FL (81-99); MONO# 0.79 X1000 (0.11-0.59); MONO% 8.6 % (1.7-9.3); MPV 9.5 FL (7.4-10.4); NEUT# 6.18 X1000 (1.4-6.5); NEUT% 67.5 % (42.2-75.2); PLT 123 X1000 (130-400); RDW 16.1 % (11.5-14.5); WBC 9.17 X1000 (4.8-10.8)
[2019-08-24] MEDS ORDERED: DIPRIVAN 1% ONE (08:15)
[2019-08-24] MEDS ORDERED: QUELICIN (DOSE) ONE (08:15)
[2019-08-24] MEDS ORDERED: XYLOCAINE-MPF 2% ONE (08:15)
[2019-08-24 08:33] LABS: AGAP 11; ALB/GLOB RATIO 0.7; ALBUMIN 2.6 g/dL (3.5-5.0); ALKALINE PHOSPHATASE 128 U/L (32-122); BUN 28 mg/dL (8-22); CALCIUM 7.6 mg/dL (8.8-10.2); CHLORIDE 101 mmol/L (98-107); COSMO 273; CREATININE 0.7 mg/dL (0.7-1.2); ESTIMATED GFR > 60; GLUCOSE 117 mg/dL (70-104); GOT 77 U/L (10-34); GPT 44 U/L (10-44); SODIUM 133 mmol/L (136-145); TCO2 21 mmol/L (25-35); TOTAL BILIRUBIN 1.32 mg/dL (0.20-1.00); TOTAL PROTEIN 6.3 g/dL (6.3-8.3)
[2019-08-24] MEDS ORDERED: SANDOSTATIN IV ONE (08:45)
[2019-08-24] MEDS ORDERED: FENTANYL ONE (08:47)
[2019-08-24] MEDS ORDERED: LABETALOL (DOSE) ONE (08:47)
[2019-08-24] MEDS ORDERED: ZOFRAN ONE (08:59)
[2019-08-24] MEDS ORDERED: DECADRON ONE (08:59)
--- NOTE | 2019-08-24 09:41 | ENDOSCOPY OPERATIVE NOTE ---
[facility] ENDOSCOPY OPERATIVE NOTE , EGD PROCEDURE REPORT PATIENT: Jose Anand ADMISSION DATE: 08/24/2019 MR#: [id number] : 1960 PROCEDURE DATE: 08/24/2019 SURGEON: Ilya Zaragoza MD STATUS: inpatient SALES SERVICE PROMOTER: Agnes Arora and Arnulfo Fox PREOPERATIVE DIAGNOSIS: The patient is a 58 yr old male here for an EGD due to hematemesis, acute po st hemorrhagic anemia, and Cirrhosis with Portal Hypertension Chronic Hep C. PROCEDURE PERFORMED: EGD w/ band ligation of varices MEDICATIONS: Per Anesthesia TOPICAL ANESTHETIC: none CONSENT: The patient understands the risks and benefits of the procedure and understands that these r isks include, but are not limited to: sedation, allergic reaction, infection, perforation and/or bleeding. Alternative means of evaluation and treatment include, among others: physical exam, x-rays, and/or surgical intervention. The patient elects to proceed with this endoscopic procedure. HISORY AND PHYSICAL: 08/24/2019 DESCRIPTION OF PROCEDURE: During intra-op preparation period all mechanical and medical equipment was checked for proper function. Hand hygiene and appropriate measures for infection prevention was taken. After the risks, benefits and alternatives of the procedure were thoroughly explained, Informed consent was verified, confirmed and timeout was successfully executed by the treatment team. The patient was anesthetized with topical anesthesia and the Pentax EG-[id number] and Pentax EG-[id number] endoscope was introduced through the mouth and advanced to the second po rtion of the duodenum. Retroflexion was performed in the stomach and revealed no abnormalities. The gastroscope was then slowly withdrawn and removed. ESOPHAGUS: There were 2 columns of medium sized varices in the lower third of the esophagus. There w as evidence of a wynne spot sign. Complete hemostasis was achieved by placing. The esophagus was otherwise normal. STOMACH: Old blood in the stomach. The mucosa of the stomach appeared normal. DUODENUM: The duodenal mucosa showed no abnormalities. SPECIMENS REMOVED: No ADVERSE EVENTS: There were no complications. POSTOPERATIVE DIAGNOSIS: 1. There were 2 columns of medium sized esophageal varices and varices in the lower third of the esophagus; Complete hemostasis was achieved by placing 2. The esophagus was otherwise normal 3. Old blood in the stomach 4. The mucosa of the stomach appeared normal 5. The duodenal mucosa showed no abnormalities RECOMMENDATIONS: 1. Resume pre-procedure medications 2. Follow up with referring physician 3. Discharge home when standard parameters are met 4. Return to floor when standard parameters are met REPEAT EXAM: Ilya Zaragoza MD eSigned: Ilya Zaragoza MD 08/24/2019 9:40 AM cc: PATIENT NAME: Jose Anand MR#: [id number]
[2019-08-24] MEDS: SANDOSTATIN 500 MICROGM in D5W 100 ML IV SCH ×2 (09:47→15:30)
[2019-08-24] MEDS ORDERED: DILAUDID ONE (10:29)
[2019-08-24 12:01] LABS: HEMATOCRIT 30.9 % (42.0-52.0); HEMOGLOBIN 9.6 g/dL (14.0-18.0)
[2019-08-24] MEDS ORDERED: SODIUM CHLORIDE 0.9% INJ SCH (12:41)
--- NOTE | 2019-08-24 14:36 | GASTROENTEROLOGY CONSULTATION ---
DATE: 08/24/2019 CONSULTING PHYSICIAN: Dr. Ayers. REASON FOR CONSULT: GI bleed. HISTORY: This is a 58-year-old gentleman, known to me from my office. I had seen him earlier in the hospital also. He has a history of chronic hepatitis C and cirrhosis secondary to hepatitis C. He has also been seen by a [facility] metal sprayer. Apparently he was there 3 days ago. There he complained about some upper respiratory tract infection. He was started on an antibiotic but he took ibuprofen on his own for his cold symptoms. He was brought to the emergency room yesterday with a history of hematemesis. Since then he has had 3 episodes of coffee-grounds emesis with clots and blood. He also has had some bloody stool. While in the emergency room he also had a near syncopal episode when he tried to get up and move to the commode. He did not have any fever or chills. Has had no cough, sputum, hemoptysis. Denies any dysuria, polyuria, hematuria. He has had no changes in mentation. However, he complains of being a little cloudy in his mind. He has been responding to questions appropriately. He has had no changes in his appetite. He has been eating well. He has not had any alcohol. Has quit smoking as well. PAST MEDICAL HISTORY: Significant for chronic liver disease secondary to chronic hepatitis C, cirrhosis of the liver with portal hypertension, and apparently he was recently diagnosed hepatocellular carcinoma. I do not have the records with me now. MEDICATIONS: Prior to hospitalization, he has been on Aldactone, Lasix, Benadryl. Has been taking a thiamine and potassium. ALLERGIES: No known drug allergies. SOCIAL HISTORY: He is . Does not smoke. Does not drink now. Does not use illicit drugs. FAMILY HISTORY: Noncontributory. REVIEW OF SYSTEMS: As per HPI as above. PHYSICAL EXAMINATION: General: Very pleasant white male. He is overweight. He is conscious, alert. He is anxious. Vital signs: Temperature 98 degrees Fahrenheit, pulse was 93 per minute, breathing 17, blood pressure 157/67. HEENT: Head is atraumatic, normocephalic. Eyes: Conjunctivae normal. Sclerae anicteric. Nares are patent. No discharge. Mouth: Buccal mucosa is moist. Has some dried blood on the oral orifice. Neck: Supple. No lymphadenopathy or thyromegaly. Chest: Clear to auscultate. Heart: S1, S2 audible. No murmur. Abdomen: Slightly distended but soft. It is nontender. I could not appreciate any masses or megaly. No ascites noted. Bowel sounds audible. Extremities: No pedal edema, cyanosis, clubbing was noted. HR INTERN: Grossly intact. No sensory or motor deficit. LABORATORIES: Reviewed which showed WBC of 9.17, hemoglobin 9.5, hematocrit 30.7, MCV 95.6, platelets were 123,000. PT 16.7, INR 1.033, PTT 31.8. Sodium on admission 133, potassium 4.8, chloride 99, bicarb 23, BUN 16, creatinine 0.9, glucose 164. AST on admission was 70, ALT 40, total bilirubin 1.0, and alkaline phosphate is 160. IMPRESSION: 1. Acute gastrointestinal bleed, most likely variceal bleeding. 2. Anemia secondary to gastrointestinal bleed. 3. Coagulopathy, mild. 4. Thrombocytopenia secondary to chronic liver disease. 5. Cirrhosis of the liver secondary to chronic hepatitis C. 6. Portal hypertension secondary to chronic hepatitis C. 7. Question of possible hepatocellular carcinoma. I do not have the record from [facility]. RECOMMENDATION: He has been started on Sandostatin drip and hemodynamic resuscitation is in process. He needs an urgent EGD for diagnostic and therapeutic purposes. He was hemodynamically unstable at one time. I have explained the findings and plan to the patient. He understands. All of his pertinent questions were answered. He will be scheduled for EGD as soon as possible. cc: Ilya Zaragoza MD
--- NOTE | 2019-08-24 16:16 | PROGRESS NOTE ---
DATE: 08/24/2019 SUBJECTIVE: Today Mr. Anand refers to be doing well. He is slightly drowsy. He has not had any more hematemesis. He is just immediate status post EGD where he was found to have varices and this was banded. OBJECTIVELY: Current Vitals: Blood pressure is 150/75, pulse of 89, respiration is 13, temperature 98.7 degrees. General: Mr. Anand is a 58-year-old gentleman. He is in bed, no distress. Mucosa is pink and moist. Anicteric. Acyanotic. Neck: Supple. Chest: Good air entry bilateral. There were no crepitations. Cardiovascular: Regular rate and rhythm. GI: Abdomen is soft. Bowel sounds present. Nontender. Extremities: No pedal edema. CLIENT SERVICE PROFESSIONAL: Patient is slightly lethargic but easily arousable. Follows commands and conversational. LABORATORY DATA: Hemoglobin is 9.6. Chemistry is also reviewed, for most part unremarkable. IMAGING STUDIES: Including a CT scan of the abdomen and pelvis showed: 1. Cirrhosis. 2. Irregular mass at the dome of the liver and a few other smaller masses, all suspicious for neoplasm. The patient is known to have liver cancer. 3. Marked splenomegaly. ASSESSMENT: 1. Hematemesis secondary to esophageal variceal bleed. The patient is status post EGD with banding. GI is on board. Patient continues to be on octreotide and antibiotics. 2. History of hepatocellular carcinoma. Follows with Hem[facility]Onc in [facility] 3. Cirrhosis of the liver secondary to a combination of hepatitis C and previous alcohol use and abuse. 4. Splenomegaly secondary to cirrhosis of the liver. cc: Tirso White MD [facility]
[2019-08-24] MEDS ORDERED: PROTONIX IV SCH (18:54)
[2019-08-24] MEDS: DILAUDID IV PRN (21:45)
[2019-08-24] MEDS: LEVAQUIN 500 MG/D5W 500 MG/100 ML IVPB IV SCH (22:48)
[2019-08-25] MEDS: LACTULOSE PO SCH ×3 (02:11→20:53)
[2019-08-25] MEDS: SANDOSTATIN 500 MICROGM in D5W 100 ML IV SCH ×5 (02:27→18:36)
[2019-08-25] MEDS: ZOFRAN IV PRN ×4 (04:20→21:01)
[2019-08-25] MEDS: DILAUDID IV PRN (04:20)
[2019-08-25] MEDS: NS 1,000 ML IV SCH (06:09)
[2019-08-25 09:14] LABS: HEMATOCRIT 27.8 % (42.0-52.0); HEMOGLOBIN 8.7 g/dL (14.0-18.0); MCH 29.9 PG (27-31); MCHC 31.3 g/dL (33-37); MCV 95.5 FL (81-99); RBC 2.91 XMIL (4.7-6.1); RDW 16.4 % (11.5-14.5); WBC 10.13 X1000 (4.8-10.8)
[2019-08-25] MEDS ORDERED: PROTONIX IV SCH (09:45)
[2019-08-25] MEDS ORDERED: NS 1,000 ML ONE (12:33)
[2019-08-25] MEDS: CARAFATE LIQUID PO SCH ×2 (14:14→20:53)
--- NOTE | 2019-08-25 14:44 | PROGRESS NOTE ---
DATE: 08/25/2019 SUBJECTIVE: Mr. Anand refers to be doing well. No new complaints. He said he is not in any pain. OBJECTIVE: Vital signs: Blood pressure is 117/76, pulse of 85, respiration is 10, temperature 97.6 degrees. General: Mr. Anand is a 58-year-old gentleman. He is in bed, no distress. HEENT: Mucosa is pink and moist. Anicteric. Acyanotic. Neck: Supple. No JVD. Chest: Good air entry bilaterally. There was no crepitations, no rhonchi. Cardiovascular: Regular rate and rhythm. Gastrointestinal: Abdomen is soft, nontender. Bowel sounds present. Extremities: No pedal edema. Distal pulses present. Central nervous system: Patient is awake, alert, oriented. There is no focal deficit. LABORATORY DATA: Ammonia is 101. Patient's alpha fetoprotein was 329. ASSESSMENT: 1. Hematemesis on presentation secondary to esophageal variceal bleed. The patient is status post EGD with banding. We will continue with octreotide tomorrow. We will also continue with antibiotics. PPI has been added by GI. 2. Hepatocellular carcinoma with extremely elevated alpha-fetoprotein. The patient follows up with an oncologist in [facility]. I have been told that he is going to be started on Lenvima once he gets discharged. 3. Cirrhosis of the liver secondary to combination of hepatitis C and previous alcohol use and abuse, complicated with splenomegaly, portal hypertension. MELD score of 11 and Child Anderson class B. So for today, we are going to start Mr. Anand on a GI soft diet, transfer him out of the ICU, continue with the current medical management. Hopefully get him discharged tomorrow and let him follow up with Heme-Onc in [facility]. The patient also follows up with Dr. Zaragoza as a GI. cc: Tirso White MD [facility]
--- NOTE | 2019-08-25 18:36 | GASTROENTEROLOGY PROGRESS NOTE ---
DATE: 08/25/2019 SUBJECTIVE: Patient was awake and alert. He was oriented. He knew my name. His and daughter were at the bedside. Per nursing report, there has been no further evidence of active GI bleeding. He had an EGD on 08/24/2019, due to hematemesis. Findings showed 2 columns of medium- sized varices that were banded and complete hemostasis was achieved by bands. There was also old blood noted in the stomach. Patient has recently been evaluated at [facility], and was diagnosed with hepatocellular carcinoma. He is supposed to start a chemotherapy medication when it arrives to their home, per daughter's report. They actually had an appointment at [facility] with the hepatitis C doctor today, and had to change the appointment. They do have a followup appointment made. Patient continues on octreotide drip. His diet has been advanced to a GI soft diet. Patient states he tolerated some soup for lunch. OBJECTIVE: Vital Signs: Temperature 97.7 degrees, pulse 91, respirations 17, blood pressure 139/72. General: Patient is awake and alert, in no acute distress. Abdomen: Soft, nontender. Positive bowel sounds. DIAGNOSTIC RESULTS: Hematology: WBC 10.13, hemoglobin 8.7, hematocrit 27.8, MCV 95.5, platelet 137,000. Chemistry: Sodium 133, potassium 5.0, chloride 101, CO2 of 21, BUN 28, glucose 117, calcium 7.6. Total bilirubin 1.32, AST 77, ALT 44, alkaline phosphatase 128, ammonia 101. Alpha fetoprotein 329. ASSESSMENT: 1. Recent acute gastrointestinal bleeding, esophageal varicocele bleeding with varices banded. 2. Anemia. Continue to monitor. 3. Cirrhosis of the liver. 4. Chronic hepatitis C. 5. Hepatocellular carcinoma. Following at [facility]. PLAN: Continue Sandostatin drip today, and will discontinue tomorrow. Continue lactulose. Will add Carafate. We will see how he does with a GI soft diet today. Continue PPI daily and will change to p.o. tomorrow. Recommend he follow back at [facility] as recommended. They have already gotten a rescheduled appointment. Recommend he follow up with us in the office after discharge. If the patient still remains in the hospital on Wednesday, we will follow back then. Otherwise, on- call GI doctor will be available. I have discussed this case with Dr. Zaragoza. Dictated by ANDREW Morrison for Ilya Zaragoza MD cc: ANDREW Ocampo MD
[2019-08-25] MEDS: LEVAQUIN 500 MG/D5W 500 MG/100 ML IVPB IV SCH ×2 (20:53→22:07)
[2019-08-26] MEDS: SANDOSTATIN 500 MICROGM in D5W 100 ML IV SCH ×2 (00:25→08:19)
[2019-08-26] MEDS: CARAFATE LIQUID PO SCH ×4 (03:36→20:36)
[2019-08-26 05:52] LABS: HEMATOCRIT 25.9 % (42.0-52.0); HEMOGLOBIN 8.3 g/dL (14.0-18.0); MCV 96.6 FL (81-99); MPV 9.1 FL (7.4-10.4); RBC 2.68 XMIL (4.7-6.1); RDW 16.6 % (11.5-14.5); WBC 6.5 X1000 (4.8-10.8)
[2019-08-26 06:18] LABS: AGAP 8; ALBUMIN 2.4 g/dL (3.5-5.0); BUN 16 mg/dL (8-22); CALCIUM 7.7 mg/dL (8.8-10.2); CHLORIDE 107 mmol/L (98-107); COSMO 275; CREATININE 0.7 mg/dL (0.7-1.2); ESTIMATED GFR > 60; GLUCOSE 106 mg/dL (70-104); PHOSPHORUS 1.7 mg/dL (2.7-4.5); SODIUM 137 mmol/L (136-145); TCO2 22 mmol/L (25-35)
[2019-08-26] MEDS: PROTONIX PO SCH (06:28)
[2019-08-26] MEDS: LACTULOSE PO SCH ×2 (08:19→20:36)
[2019-08-26] MEDS: NEUTRA-PHOS PO SCH ×4 (08:19→20:36)
[2019-08-26] MEDS: DILAUDID IV PRN ×2 (08:36→14:10)
[2019-08-26] MEDS: ZOFRAN IV PRN ×2 (08:37→14:14)
[2019-08-26 11:35] LABS: HEMATOCRIT 26.3 % (42.0-52.0); HEMOGLOBIN 8.2 g/dL (14.0-18.0)
--- NOTE | 2019-08-26 13:48 | PROGRESS NOTE ---
DATE: 08/26/2019 SUBJECTIVE: This morning Mr. Anand refers to be doing well. He said he had a very large dark looking bowel movement yesterday. He had another 1 this morning which was not as voluminous as the 1 yesterday, but still kind of dark. He denies any dizziness or any other associated symptoms. OBJECTIVE: Vital signs: This morning his vitals blood pressure is 114/67, pulse of 89, respirations 15, temperature is 98.2 degrees. The patient is saturating 99% on room air. General: Mr. Anand is a 58-year-old gentleman. He is in bed in no distress. HEENT: Mucosa is pink and moist. Anicteric. Acyanotic. Neck: Neck is supple. Chest: Good air entry bilateral there was no crepitations. No rhonchi. Cardiovascular: Regular rate and rhythm. No murmurs, no rubs, no gallops. GI: Abdomen is soft, minimally tender in the epigastrium. There is mild hepatosplenomegaly. Extremities: No pedal edema. CELLAR HAND: Patient is awake, alert, oriented. No focal deficit. LABORATORY DATA: WBC is 6.5, hemoglobin is down to 8.3, platelet count of 93,000. Chemistry is completely within normal range. ASSESSMENT: 1. Hematemesis on admission secondary to esophageal variceal bleed. The patient is status post esophagogastroduodenoscopy with esophageal banding. He is also on proton pump inhibitor, antibiotics and octreotide. 2. Anemia of acute gastrointestinal bleed. The patient's hemoglobin and hematocrit continues to be dropping. We are going to repeat this afternoon. If it continues that trend of dropping, he is going to be transfused. 3. Hepatocellular carcinoma with extremely elevated alpha-fetoprotein. The patient follows up with an oncologist at [facility]. I understand he is going to be started on Lenvima once he gets discharged. 4. Cirrhosis of the liver secondary to combination of hepatitis C and previous alcohol abuse. This is complicated with splenomegaly, portal hypertension, esophageal bleed, and MELD score of 11. PLAN: In general, I think Mr. Anand is doing well. His hemoglobin seems to be dropping slowly. We are going to repeat it this morning and follow it up accordingly. If it continues to drop significantly, he will be transfused. cc: Tirso White MD
[2019-08-26] MEDS ORDERED: DUONEB (A & A) INH ONE (18:56)
--- NOTE | 2019-08-26 19:37 | Diag Imaging Result Doc PS360 ---
EXAM: CHEST-PORTABLE INDICATION: wheezing and cough TECHNIQUE: One view COMPARISON: 08/23/2019 FINDINGS: The lungs are grossly clear. There is no discrete pleural fluid collection or pneumothorax. The cardiomediastinal silhouette and central vasculature are grossly unremarkable. IMPRESSION: No evidence of acute pathology by plain radiograph. Electronically signed by Hever Rivera 08/26/2019 7:35 PM
[2019-08-26] MEDS: LEVAQUIN 500 MG/D5W 500 MG/100 ML IVPB IV SCH (22:17)
[2019-08-27] MEDS: CARAFATE LIQUID PO SCH ×2 (02:18→09:30)
[2019-08-27 05:47] LABS: HEMATOCRIT 26.3 % (42.0-52.0); HEMOGLOBIN 8.5 g/dL (14.0-18.0); MCH 31.5 PG (27-31); MCHC 32.3 g/dL (33-37); MCV 97.4 FL (81-99); MPV 9.2 FL (7.4-10.4); RBC 2.7 XMIL (4.7-6.1); RDW 16.4 % (11.5-14.5); WBC 6.1 X1000 (4.8-10.8)
[2019-08-27] MEDS: PROTONIX PO SCH (06:08)
[2019-08-27 06:12] LABS: AGAP 9; ALBUMIN 2.3 g/dL (3.5-5.0); BUN 12 mg/dL (8-22); CALCIUM 7.6 mg/dL (8.8-10.2); CHLORIDE 104 mmol/L (98-107); COSMO 271; CREATININE 0.7 mg/dL (0.7-1.2); ESTIMATED GFR > 60; GLUCOSE 112 mg/dL (70-104); PHOSPHORUS 2.4 mg/dL (2.7-4.5); POTASSIUM 3.9 mmol/L (3.5-5.1); SODIUM 135 mmol/L (136-145); TCO2 22 mmol/L (25-35)
[2019-08-27 08:36] VITALS: BP 133/57
[2019-08-27] MEDS: LACTULOSE PO SCH (09:29)
[2019-08-27] MEDS: NEUTRA-PHOS PO SCH (09:30)
--- NOTE | 2019-08-27 18:49 | DISCHARGE SUMMARY ---
ADMISSION DATE: 08/23/2019 DISCHARGE DATE: 08/27/2019 DISPOSITION: Home. FOLLOW-UP: 1. Dr. Bacon. 2. Dr. Zaragoza. 3. Dr. Solo Adair in [facility]. CONSULTATION DURING THIS ADMISSION: GI was consulted. Patient was seen by Dr. Zaragoza. INVASIVE PROCEDURES DONE DURING THIS ADMISSION: EGD was done which revealed 2 columns of medium- sized esophageal varices and varices in the lower 3rd of the esophagus. Complete hemostasis was achieved by placing banding. ADMISSION DIAGNOSES: 1. Upper GI bleed, probably from esophageal varices. 2. Mild hemorrhagic anemia. 3. Cirrhosis due to hepatitis C. 4. Hepatocellular carcinoma. DIAGNOSES AT THE TIME OF DISCHARGE: 1. Hematemesis on admission secondary to esophageal variceal bleed. The patient is status post EGD with esophageal varices banding. 2. Anemia of acute blood loss from gastrointestinal bleed. 3. Hepatocellular carcinoma with extremely elevated alpha-fetoprotein. 4. Cirrhosis of the liver secondary to combination of hepatitis C and previous alcohol abuse complicated with splenomegaly, portal hypertension, esophageal varix bleed, MELD score of 11. DISCHARGE MEDICATIONS: 1. Thiamin 100 mg p.o. at bedtime. 2. Spironolactone 50 mg b.i.d. 3. Furosemide 40 mg p.o. daily. 4. Lactulose 30 mL p.o. b.i.d. 5. Levofloxacin 500 p.o. daily. 6. Pantoprazole 40 mg p.o. daily. 7. Carafate 1 g p.o. q. 6. 8. Tramadol 50 mg p.o. q. 8. PRESENTING COMPLAINT: Vomiting blood. HISTORY OF PRESENTING COMPLAINT: Mr. Anand is a 58-year-old gentleman who has a history of hepatitis C, hepatocellular carcinoma, presented to the emergency room because of feeling nauseated and vomiting multiple times which had blood in it. Upon presenting to the emergency room, he was evaluated and was found to have a hemoglobin of 9.5, which dropped to 8.7. Mr. Anand was admitted to the ICU for further medical care. HOSPITAL COURSE: Mr. Anand was admitted to the ICU initially and was seen. Consult was placed for GI. Patient was seen by Dr. Zaragoza. A decision was made to do an EGD which revealed esophageal varix, which was banded. Please refer to the details of the EGD notes in the chart. Postoperatively, Mr. Anand remained stable. Hemoglobin and hematocrit dropped slightly to 8.2, but he did not need any blood transfusion. This morning hemoglobin and hematocrit has gone up to 8.5. After the procedure, Mr. Anand also had 2 bowel movements which were initially dark, melena looking, but that has also cleared over the course of the days. This morning Mr. Anand refers to be doing a lot better. The and the daughter were both at the bedside at the time of the encounter. No new complaints. We think Mr. Anand is currently medically stable to be discharged. He is going to follow up with Dr. Jean-Baptiste and his other outpatient physicians. During the hospital course the patient did have a CT scan of the abdomen and pelvic which showed cirrhosis and irregular mass at the dome of the liver and a few other similar masses that are highly suspicious for neoplasm, marked splenomegaly. All the discharge instructions have been discussed with Mr. Anand and the , the daughter was also at the bedside. They all voiced understanding. Time spent for discharge is 37 minutes. cc: MD Jeff Smith MD Khurshid Yousuf, MD Dr. Rudy Navari, [facility]
== END 2019-08-27 13:25 | disposition home or self-care (01) | DRG 432 ==
LOC: ED 17:09 → EDIPHOLD 22:32 → SUATTDRO 22:32 → ICU 08-24 12:30 → 1N 08-25 15:14 → 3N 08-26 20:42 → 1N 08-26 20:47
PROVIDERS: ATTEND Internal Medicine